=== PATIENT | male | born 1995 | race Caucasian/White ===

== ENCOUNTER 2020-02-03 14:27 | Outpatient (REF) | payer OTHER, SELFPAY ==
[2020-02-03 15:11] LABS: MANUAL DIFF FLAG NO
[2020-02-03 15:14] LABS: Basophils Absolute Auto 0.1 X10*3/uL (0.0-0.2); Basophils Percent Auto 0.8 % (0-2); Eosinophils Absolute Auto 0.3 X10*3/uL (0.0-0.4); Eosinophils Percent Auto 3.7 % (0-4); Hematocrit 39.9 % (42-52); Hemoglobin 13.6 g/dl (14.0-18.0); Imm Gran Abs Auto 0.03 X10*3/uL (0.00-0.03); Imm Gran Pct Auto 0.4 % (0.0-0.4); Lymphocytes Absolute Auto 2.9 X10*3/uL (1.2-4.9); Lymphocytes Percent Auto 37.5 % (20-40); Mean Corpuscular HGB Conc 34.1 g/dl (31.0-36.0); Mean Corpuscular Hemoglobin 29.6 pg (27.0-33.0); Mean Corpuscular Volume 86.9 fL (80-98); Mean Platelet Volume 10.2 fL (9.4-12.4); Monocytes Absolute Auto 0.8 X10*3/uL (0.1-1.2); Monocytes Percent Auto 10.1 % (2-11); Neutrophils Absolute Auto 3.7 X10*3/uL (2.0-8.3); Neutrophils Percent Auto 47.5 % (45-73); Platelet Count 203 X10*3/uL (160-400); Red Blood Count 4.59 X10*6/uL (4.60-5.80); White Blood Count 7.8 X10*3/uL (4.8-10.8)
[2020-02-03 15:46] LABS: Alanine Aminotransferase 30 U/L (0-40); Albumin Level 4.3 g/dL (3.5-5.0); Alkaline Phosphatase 74 U/L (39-117); Anion Gap 13 (12-20); Aspartate Amino Transferase 24 U/L (5-37); Bilirubin Total 0.6 mg/dL (0.0-1.0); Blood Urea Nitrogen 18 mg/dL (9-16); Calcium 9.1 mg/dL (8.4-10.2); Carbon Dioxide 30 mmol/L (22-29); Chloride 100 mmol/L (96-108); Estimated Glomerular Filt Rate > 60; Glucose Fasting 89 mg/dL (60-99); Potassium 4.3 mmol/l (3.3-5.1); Sodium 139 mmol/L (135-145); Total Protein 7.2 g/dL (6.5-8.0)
[2020-02-03 16:08] LABS: TSH reflex Free T4 2.78 mIU/mL (0.32-4.0)
[2020-02-03 16:10] LABS: HBS Num1 97.66 mIU/mL (0-7.99); HBc Num1 0.08 S/CO (0.00-0.79); HBsAGNum1 0.31 S/CO (0.00-0.99); HIV AB/AG Nonreactive (Nonreactive); HIV Num 1 0.13 S/CO (0.00-0.99); Hepatitis B Core Antibody Nonreactive (Nonreactive); Hepatitis B Surface Antigen Negative (Negative); ~Hepatitis B Surface Antibody REACTIVE (Nonreactive); ~Hepatitis C Antibody Reactive (Nonreactive)
[2020-02-11 23:03] LABS: Hepatitis C Genotype Not Detected
== END 2020-02-03 14:28 | disposition home or self-care (01) ==
LOC: HO.LAB 14:27
PROVIDERS: PCP Physician Assistant; Visit Provider Physician Assistant
DX: B18.2 Chronic viral hepatitis C (principal); F19.90 Other psychoactive substance use, unspecified, uncomplicated; Z13.29 Encounter for screening for other suspected endocrine disorder; Z11.3 Encounter for screening for infections with a predominantly sexual mode of transmission; Z13.1 Encounter for screening for diabetes mellitus
CPT/HCPCS: 36415; 80053; 84443; 85025; 86704; 86706; 86803; 87340; 87389; 87902

== ENCOUNTER 2023-01-08 12:43 | Outpatient (AMB) | payer OTHER, SELFPAY ==
[2023-01-08 12:45] VITALS: BP 118/62; PULSE 85; O2SAT 96; BMI 24.4
--- NOTE | 2023-01-08 12:45 | MHC.PC.OV ---
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 per policy Accompanied by: Self / Same As Patient Allergies cat dander [CATS] Allergy (Unknown, Verified 01/08/23 12:46) SNEEZING AND INCREASE IN ASTHMA SYMPTOMS dog dander [DOGS] Allergy (Unknown, Verified 01/08/23 12:46) SNEEZING AND INCREASE IN ASTHMA SYMPTOMS SEASONAL ALLERGIES Allergy (Unknown, Uncoded 01/08/23 12:46) SNEEZING AND INCREASE IN ASTHMA SYMPTOMS Medication List - Last Reconciled 01/09/23 by Chavo Ching MD clonazepam 1 mg PO BID PRN hydroxyzine HCl 25 mg PO BID PRN loratadine 10 mg PO DAILY methadone 10 mg PO DAILY montelukast 10 mg PO BEDTIME 90 days nicotine (polacrilex) 4 mg PO Q1H 20 days ProAir HFA 90 mcg/actuation (albuterol sulfate) 2 puffs inhalation Q4H PRN 30 days NS Tobacco use date assessed: 01/08/23 Dental Screening Dental Screen Date: 01/08/23 Did you have a dental visit in the last 12 months?: Yes Did you have a dental problem in the last 6 months where you did not have access to dental care?: No Was dental information given to patient?: Patient has dentist HPI dental dreams/tooth extraction HPI Details scheduled to have two cavities treated; has controlled asthma, substance abuse and depression [facility] Surgical History No pertinent past surgical history Family History Father Leukemia Mother Chronic mental illness Addiction Maternal Grandmother Chronic mental illness Maternal Grandfather No problems noted. Sister Anxiety Depression Addiction to drug Social History Housing: Other Housing Other:: half way house Alcohol intake: never Patient Tobacco Use Status: Current everyday Tobacco user Cigarette Packs Per Day: 1 e-Cigarette/Vaping Use: Never Used Second Hand Smoke Exposure: Yes Substance Use Type: Heroin and IV Drugs service: No Current occupational status: unemployed Cognitive needs: No Hearing needs: No Vision needs: No Questionnaire PHQ-9 Over the last 2 weeks, how often have you been bothered by any of the following problems? 1. Little interest or pleasure in doing things: not at all 2. Feeling down, depressed, or hopeless: not at all 3. Trouble falling or staying asleep, or sleeping too much: not at all 4. Feeling tired or having little energy: not at all 5. Poor appetite or overeating: not at all 6. Feeling bad about yourself - or that you are a failure or have let yourself or your family down: not at all 7. Trouble concentrating on things, such as reading the newspaper or watching television: not at all 8. Moving or speaking so slowly that other people could have noticed. Or the opposite - being so fidgety or restless that you have been moving around a lot more than usual: not at all 9. Thoughts that you would be better off or of hurting yourself in some way: not at all Total score: 0 Depression Screening Interpretation: Negative Depression Screening Done: Yes 17565 - PHQ-9 Billing: Yes Source: Developed by Drs. Daniel Cleary, Michelle Dye, Torsten Espinoza and colleagues, with an educational nadine from [employer]. Thrive Questionnaire Date Thrive assessed: 01/08/23 I am a: Patient What is your living situation today?: I have a steady place to live Within the past 12 months, did the food you bought not last and you didn't have the money to get more?: Never true Within the past 12 months, did you worry whether your food would run out before you got money to buy more?: Never true Do you have trouble paying for medicines?: No Do you have trouble getting transportation to medical appointments?: No Do you have trouble paying your heating and electricity bill?: No Do you have trouble taking care of your child, family member or friend?: No Do you have trouble with day-to-day activities such as bathing, preparing meals, shopping, managing finances, etc.?: No Are you currently unemployed and looking for a job?: No Are you interested in more education?: No Please select the resources that you would like help with: None AUDIT C Alcohol Use Questionnaire (AUDIT-C) 1. How often do you have a drink containing alcohol?: Never 3. How often do you have six or more drinks on one occasion?: Never Total Score: 0 Score Reviewed/Action Taken: Yes BISHOP-7 AMB Questionnaire BISHOP-7 Date BISHOP - 7 assessed: 01/08/23 Feeling nervous, anxious, or on edge: 0 = Not at all Not being able to stop or control worryin = Not at all Worrying too much about different things: 0 = Not at all Trouble relaxin = Not at all Being so restless that it is hard to sit still: 0 = Not at all Becoming easily annoyed or irritable: 0 = Not at all Feeling afraid as if something awful might happen: 0 = Not at all Total BISHOP-7 score (0-4 normal; 5-9 mild; 10-14 moderate; 15-21 severe): 0 Source: Developed by Drs. Daniel Cleary, Michelle Dye, Torsten Espinoza and colleagues, with an educational nadine from [employer]. BISHOP-7 Assessment Billing BISHOP-7 Assessment Tool: BISHOP-7 Assessment 19220 Review of Systems Const Denies chills, Denies fatigue, Denies headache(s) and Denies weight loss Eyes Denies change in vision, Denies diplopia and Denies eye pain ENT Denies vertigo, Denies dizziness, Denies headache(s) and Denies nasal discharge Card Denies chest pain, Denies rapid heart rate and Denies dyspnea on exertion Resp Denies chest congestion, Denies cough, Denies pain with cough and Denies dyspnea on exertion GI Denies abdominal pain, Denies hematochezia and Denies change in bowel habits Musc Denies myalgias, Denies arthralgias and Denies joint swelling Skin/Breast Denies lesions and Denies unusual bruising Neuro Denies vertigo, Denies dizziness, Denies headache(s) and Denies focal weakness Endo Denies fatigue Physical exam (Primary Care) Vital Signs: Last Vital Signs Pulse 85 01/08/23 12:45 BP 118/62 01/08/23 12:45 Pulse Ox 96 01/08/23 12:45 Oxygen Delivery Method Room Air 01/08/23 12:45 BMI result Body Mass Index 24.4 Tobacco/Smoking Status: Tobacco use Status Tobacco use date assessed 01/08/23 01/08/23 12:52 Patient Tobacco Use Status Current everyday Tobacco 01/08/23 12:52 PHQ-9: PHQ-9 Score PHQ-9: Total score 0 01/08/23 12:52 Depression Screening Interpretation: Negative Thrive Assessment: Date of Thrive Assessment Date Thrive assessed 01/08/23 01/08/23 12:52 Const General: cooperative, healthy appearing and no acute distress Orientation/consciousness: oriented to person, oriented to place and oriented to time HENMT Head: Yes normal to inspection, Yes normocephalic and Yes atraumatic Mouth: Normal oral and palatal mucosa present and tongue normal Throat: Yes posterior oropharynx normal and Yes uvula midline Eyes General: appearance normal, both eyes and all related structures Neck Neck: Yes normal visual inspection, Yes full ROM and Yes no lymphadenopathy Thyroid: Thyroid normal Carotids: normal carotid upstroke Chest Chest palpation & inspection: normal inspection of the chest Resp Effort & Inspection: normal respiratory effort and able to speak in complete sentences Auscultation: clear to auscultation bilaterally Cardio Jugular venous distension: no JVD Palpation: normal PMI Rate: regular rate Rhythm: regular rhythm Heart sounds: S1 normal heart sound present and S2 normal heart sound present GI Inspection: Yes normal to inspection Palpation (GI): Soft to palpation and No hepatosplenomegaly present Auscultation: normal bowel sounds General: Yes no CVA tenderness Back/Spine/Pelvis Back: no CVA tenderness Skin General skin exam: no rashes or lesions noted Neuro General: oriented to person, oriented to place and oriented to time Extrem General: Yes normal to inspection and Yes full ROM Assessment and Plan Assessment & Plan (1) Preop exam for internal medicine: Code(s): Z01.818 - Encounter for other preprocedural examination Plan: low risk for cardiovacular complications; cleared for dental work (2) MDD (major depressive disorder): Code(s): F32.9 - Major depressive disorder, single episode, unspecified Qualifiers: Major depression recurrence: recurrent Active/Remission status: currently active Major depression episode severity: moderate Qualified Code(s): F33.1 - Major depressive disorder, recurrent, moderate Plan: stable; same rx (3) History of opioid abuse: Code(s): F11.11 - Opioid abuse, in remission Plan: cont on methadone (4) Asthma: Code(s): J45.909 - Unspecified asthma, uncomplicated Qualifiers: Asthma severity: mild Asthma persistence: persistent Asthma complication type: uncomplicated Qualified Code(s): J45.30 - Mild persistent asthma, uncomplicated Plan: stable; on rx (5) Hepatitis C: Code(s): B19.20 - Unspecified viral hepatitis C without hepatic coma Qualifiers: Viral hepatitis chronicity: chronic Hepatic coma status: without hepatic coma Qualified Code(s): B18.2 - Chronic viral hepatitis C Plan: in remission Medications: Refilled ProAir HFA 90 mcg/actuation (albuterol sulfate) 2 puffs inhalation Q4H PRN 8.5 grams 3RF wheezing 30 days NS J45.30 - Mild persistent asthma, uncomplicated loratadine 10 mg PO DAILY 90 tabs 0RF J45.30 - Mild persistent asthma, uncomplicated Coding Level of Care Code Est Pt Level 4 (94272) Diagnoses Preop exam for internal medicine Z01.818 Moderate episode of recurrent major depressive disorder F33.1 Major depression recurrence: recurrent Active/Remission status: currently active Major depression episode severity: moderate History of opioid abuse F11.11 Mild persistent asthma without complication J45.30 Asthma severity: mild Asthma persistence: persistent Asthma complication type: uncomplicated Chronic hepatitis C without hepatic coma B18.2 Viral hepatitis chronicity: chronic Hepatic coma status: without hepatic coma Additional Codes BISHOP-7 Assessment Billing - BISHOP-7 Assessment Tool: BISHOP-7 Assessment 09693 ([id number])
== END 2023-01-08 13:04 | disposition home or self-care (01) ==
PROVIDERS: PCP Physician Assistant; Visit Provider Internal Medicine
DX: F33.1 Major depressive disorder, recurrent, moderate (principal); F11.11 Opioid abuse, in remission; B18.2 Chronic viral hepatitis C; Z01.818 Encounter for other preprocedural examination; J45.30 Mild persistent asthma, uncomplicated
CPT/HCPCS: 99214

== ENCOUNTER 2023-04-16 12:57 | Outpatient (AMB) | payer OTHER, SELFPAY ==
[2023-04-16 13:00] VITALS: BP 110/74; PULSE 67; O2SAT 97; BMI 27.4
--- NOTE | 2023-04-16 13:00 | MHC.PC.OV ---
Vital Signs 04/16/23 13:00 Height 5 ft 6 in Weight 169 lb 8 oz BMI 27.4 BP 110/74 Blood Pressure Location Lt brachial Position Sitting Pulse 67 Pulse Source Pulse Oximeter Pulse Oximetry (%) 97 Oxygen Delivery Method Room Air Intake Visit Reasons: Annual PE Intake Note: Patient is here today for a physical. 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 Accompanied by: Self / Same As Patient Allergies cat dander [CATS] Allergy (Unknown, Verified 04/16/23 13:18) SNEEZING AND INCREASE IN ASTHMA SYMPTOMS dog dander [DOGS] Allergy (Unknown, Verified 04/16/23 13:18) SNEEZING AND INCREASE IN ASTHMA SYMPTOMS SEASONAL ALLERGIES Allergy (Unknown, Uncoded 04/16/23 13:01) SNEEZING AND INCREASE IN ASTHMA SYMPTOMS Medication List - Last Reconciled 04/16/23 by Aron Trujillo PA-C alum-mag hydroxide-simeth 200-200-20 mg/5 mL (Antacid-[place]) mL PO clonazepam 1 mg PO BID PRN hydroxyzine pamoate 50 mg PO TID loratadine 10 mg PO DAILY methadone 10 mg PO DAILY methadone 75 mg subcut Q4-8H PRN montelukast 10 mg PO BEDTIME 90 days nicotine 1 patch topical DAILY nicotine (polacrilex) 4 mg PO Q1H 20 days Tobacco use date assessed: 04/16/23 Dental Screening Dental Screen Date: 04/16/23 Did you have a dental visit in the last 12 months?: Yes Did you have a dental problem in the last 6 months where you did not have access to dental care?: No Was dental information given to patient?: Patient has dentist HPI Annual PE HPI Details Patient is a 27-year-old male here today an annual physical... Patient has a past medical history significant for tobacco abuse, IV heroin use, chronic hepatitis-C, Environmental allergies, anxiety. .. hepatitis-C: Had retested for Hep C and reports clearance of the virus without any treatment. .. Asthma: reports his asthma has been well controlled with only p.r.n. use of his albuterol inhaler. He is reports since he has been sober from street opiates his asthma has been a little bit more bothersome., unfortunately does continue to smoke .. IV opiate use (in remission)- now living in sober living, has been sober over the last [address]iates. Now on methadone and going to a methadone clinic in the local area. --> he is concerned about his low testosterone, he reports symptoms of increased depression, low libido, difficulty growing facial hair. He reports he got tested and was low normal. He does understand this is likely due to years of opiate use at a young age. He is interested in seeing a neurologist for hypogonadism workup and possibly supplemental testosterone .. Smoker: Has reduced his cigarette smoking. Has tried Chantix in the past though was not helpful.. He does have nicotine patches available to him through his methadone clinic He would like to continue nicotine gum . VAccine: Up-to-date with tetanus vaccine, has received 2 COVID vaccines, [facility] Surgical History No pertinent past surgical history Family History Father Leukemia Mother Chronic mental illness Addiction Maternal Grandmother Chronic mental illness Maternal Grandfather No problems noted. Sister Anxiety Depression Addiction to drug Social History Housing: Other Housing Other:: half way house Alcohol intake: never Patient Tobacco Use Status: Current everyday Tobacco user Cigarette Packs Per Day: 1 e-Cigarette/Vaping Use: Never Used Second Hand Smoke Exposure: Yes Substance Use Type: Heroin and IV Drugs service: No Current occupational status: unemployed Cognitive needs: No Hearing needs: No Vision needs: No Questionnaire PHQ-9 Over the last 2 weeks, how often have you been bothered by any of the following problems? 1. Little interest or pleasure in doing things: not at all 2. Feeling down, depressed, or hopeless: not at all 3. Trouble falling or staying asleep, or sleeping too much: not at all 4. Feeling tired or having little energy: not at all 5. Poor appetite or overeating: not at all 6. Feeling bad about yourself - or that you are a failure or have let yourself or your family down: not at all 7. Trouble concentrating on things, such as reading the newspaper or watching television: not at all 8. Moving or speaking so slowly that other people could have noticed. Or the opposite - being so fidgety or restless that you have been moving around a lot more than usual: not at all 9. Thoughts that you would be better off or of hurting yourself in some way: not at all Total score: 0 Depression Screening Interpretation: Negative Depression Screening Done: Yes 20910 - PHQ-9 Billing: Yes Source: Developed by Drs. Daniel Cleary, Michelle Dye, Torsten Espinoza and colleagues, with an educational nadine from [employer]. Thrive Questionnaire Date Thrive assessed: 04/16/23 I am a: Patient What is your living situation today?: I have a steady place to live Within the past 12 months, did the food you bought not last and you didn't have the money to get more?: Never true Within the past 12 months, did you worry whether your food would run out before you got money to buy more?: Never true Do you have trouble paying for medicines?: No Do you have trouble getting transportation to medical appointments?: No Do you have trouble paying your heating and electricity bill?: No Do you have trouble taking care of your child, family member or friend?: No Do you have trouble with day-to-day activities such as bathing, preparing meals, shopping, managing finances, etc.?: No Are you currently unemployed and looking for a job?: No Are you interested in more education?: No Please select the resources that you would like help with: None Currently or been in a relationship where the following occur: no concerns reported THRIVE Score: 0 AUDIT C Alcohol Use Questionnaire (AUDIT-C) 1. How often do you have a drink containing alcohol?: Never 3. How often do you have six or more drinks on one occasion?: Never Total Score: 0 Score Reviewed/Action Taken: Yes BISHOP-7 AMB Questionnaire BISHOP-7 Date BISHOP - 7 assessed: 04/16/23 Feeling nervous, anxious, or on edge: 0 = Not at all Not being able to stop or control worryin = Not at all Worrying too much about different things: 0 = Not at all Trouble relaxin = Not at all Being so restless that it is hard to sit still: 0 = Not at all Becoming easily annoyed or irritable: 0 = Not at all Feeling afraid as if something awful might happen: 0 = Not at all Total BISHOP-7 score (0-4 normal; 5-9 mild; 10-14 moderate; 15-21 severe): 0 Source: Developed by Drs. Daniel Cleary, Michelle Dye, Torsten Espinoza and colleagues, with an educational nadine from [employer]. BISHOP-7 Assessment Billing BISHOP-7 Assessment Tool: BISHOP-7 Assessment 99614 Review of Systems Const Denies body aches, Denies chills, Denies excessive sweating, Denies fatigue, Denies fever(s) and Denies headache(s) Eyes Denies blurry vision ENT Denies dysphagia, Denies vertigo, Denies dizziness, Denies headache(s), Denies hearing loss and Denies tinnitus Card Denies chest pain, Denies chest pain with activity, Denies syncope, Denies irregular heart rhythm and Denies dyspnea Resp Denies chest congestion, Denies cough, Denies hemoptysis, Denies dyspnea and Denies wheezing GI Denies abdominal pain, Denies melena, Denies hematochezia, Denies coffee ground emesis, Denies dysphagia, Denies diarrhea, Denies nausea and Denies vomiting Denies difficulty urinating, Denies dysuria, Denies urinary frequency, Denies urinary hesitancy and Denies urinary urgency Musc Denies arthralgias, Denies limited range of motion, Denies muscle cramps and Denies muscle weakness Skin/Breast Denies rash and Denies skin ulcer Neuro Denies Abnormal speech present, Denies confusion, Denies vertigo, Denies dizziness, Denies syncope, Denies headache(s), Denies memory loss and Denies seizure-like activity Psych Denies anxiety, Denies confusion, Denies depression, Denies memory loss, Denies panic attacks and Denies paranoia Endo Denies excessive sweating, Denies fatigue, Denies flushing, Denies polydipsia and Denies polyuria Aller/Immun Denies wheezing Physical exam (Primary Care) Vital Signs: Last Vital Signs Pulse 67 04/16/23 13:00 BP 110/74 04/16/23 13:00 Pulse Ox 97 04/16/23 13:00 Oxygen Delivery Method Room Air 04/16/23 13:00 BMI result Body Mass Index 27.4 Tobacco/Smoking Status: Tobacco use Status Tobacco use date assessed 04/16/23 04/16/23 13:03 Patient Tobacco Use Status Current everyday Tobacco 04/16/23 13:03 e-Cigarette/Vaping Use Never Used 04/16/23 13:03 Are you ready to quit: Yes Tobacco cessation counseling provided: Yes Items discussed: Nicotine replacement Relapse Prevention: discussed the importance of a supportive environment, discussed negative mood or depression after quitting, weight gain after smoking is common and discussed dietary, exercise and/or lifestyle changes Number of minutes spent counselin CPT code: 87380 - 4-10 Minutes PHQ-9: PHQ-9 Score PHQ-9: Total score 0 04/16/23 13:12 Depression Screening Interpretation: Negative Thrive Assessment: Date of Thrive Assessment Date Thrive assessed 04/16/23 04/16/23 13:03 Currently or been in a relationship where the following occur: no concerns reported Const General: cooperative, comfortable, no acute distress, alert and awake; No confusion Orientation/consciousness: oriented to person, oriented to place, patient oriented x3 and No confusion HENMT Head: Yes normocephalic Ears: external ears normal and TM's normal bilaterally Face and sinus: No sinus tenderness Mouth: Normal oral and palatal mucosa present and tongue normal Teeth and gingiva: dentition normal and gingiva normal Throat: Yes posterior oropharynx normal, Yes tonsils normal and Yes uvula midline Eyes Conjunctivae: conjunctivae normal Sclerae: sclerae normal Pupils: Equal, round and reactive pupils present EOM: EOMs intact bilaterally Direct Ophthalmoscopy: No no photophobia Neck Neck: Yes no lymphadenopathy, No tender and Yes no JVD Thyroid: Thyroid normal Carotids: no bruits Chest Chest palpation & inspection: no tenderness Resp Effort & Inspection: normal respiratory effort, no audible wheezes, not labored and no stridor Auscultation: no crackles, no rales, no rhonchi and no wheezes Cardio Jugular venous distension: no JVD Rate: regular rate, not bradycardic and not tachycardic Rhythm: regular rhythm Bruits: no carotid bruits Peripheral pulses: Peripheral pulses 2+ throughout GI Inspection: Yes normal to inspection, No abdominal wall ecchymosis and No visible herniation Palpation (GI): Soft to palpation, nontender, no guarding, not rigid and No hepatosplenomegaly present Auscultation: normoactive bowel sounds General: Yes no CVA tenderness Back/Spine/Pelvis Back: no CVA tenderness and No back tenderness Cervical Spine: cervical ROM normal Thoracic/Lumbar Spine: thoracic and lumbar spine normal to inspection, straight leg raise negative bilaterally, No thoraco-lumbar ROM limited and No lumbar spinal tenderness Skin Lesions: no lesions Rashes: no rashes Wounds: no wounds Neuro General: oriented to person, oriented to place, patient oriented x3, CN's II-XI intact bilaterally and No confusion Cranial nerves: Yes Equal, round and reactive pupils present and Yes Normal accommodation reflex present Cognition (Neuro): normal cognition Speech: No Abnormal speech present Gait exam (Neuro): Normal gait present Motor exam (neuro): 5/5 motor strength present throughout Extrem Right upper extremity: full ROM; no cyanosis Left upper extremity: full ROM; no cyanosis Right lower extremity: no edema Left lower extremity: no edema Psych Appearance: grossly normal Mental Status: mental status grossly normal Affect: normal affect Attitude: cooperative Thought process: Normal thought process present Office Procedures Flu Questionnaire Does the patient have a severe egg allergy?: No Does the patient have severe life threatening allergies?: No Does the patient have a fever or illness today?: No Has the patient ever had Guillain-Dawson Syndrome?: No Has the patient ever had any past reaction to a flu shot?: No Immunizations flu vacc [id number] 6mos up(PF) 60 mcg(15 mcgx4)/0.5 mL IM syringe Performing Provider: Aron Trujillo PA-C Performing Location: [facility] Administered by: KENYATTA Bedolla on 04/16/23 13:12 Dose Route Admin Location Dispensed Lot Number Expiration Date NDC [facility] 0.5 mL IM Left Deltoid 0.5 mL [id number] 09/01/23 31152-539-36 [place] VIS Given Date VIS Provided VIS Publication Date 04/16/23 Single Vaccine 20 Eligibility Eligibility Date Funding Source Not [facility] Eligible 04/16/23 Private Assessment and Plan Assessment & Plan (1) Annual physical exam: Code(s): Z00.00 - Encounter for general adult medical examination without abnormal findings (2) Hypogonadism in male: Code(s): E29.1 - Testicular hypofunction Plan: He has low normal testosterone level on most recent labs from a clinic. Will recheck testosterone. He does report having low libido, low energy and sometimes increased depression which he attributes to low testosterone. He has been using opiates from early teen heard which is likely the reason for his low testosterone. He would like to see a urologist for hypogonadism workup and perhaps testosterone replacement. (3) Current smoker: Code(s): F17.200 - Nicotine dependence, unspecified, uncomplicated Plan: He does report he needs to completely quit smoking and has had difficulty doing so. He does have nicotine patches available to him and will continue working on reducing his smoking. (4) History of opioid abuse: Code(s): F11.11 - Opioid abuse, in remission Plan: Has been remission over the last 2 months. Now living in sober living. Now also on methadone and doing much better. 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 (5) Hepatitis C: Code(s): B19.20 - Unspecified viral hepatitis C without hepatic coma Qualifiers: Hepatic coma status: without hepatic coma Viral hepatitis chronicity: chronic Qualified Code(s): B18.2 - Chronic viral hepatitis C Plan: He reports he had been tested at the clinic in his hepatitis C viral load was negligible. He did not need treatment (6) Asthma: Code(s): J45.909 - Unspecified asthma, uncomplicated Qualifiers: Asthma complication type: uncomplicated Asthma persistence: persistent Asthma severity: mild Qualified Code(s): J45.30 - Mild persistent asthma, uncomplicated Plan: He reports his asthma is fairly well controlled with only p.r.n. use of his albuterol inhaler. He does use allergy medication on a daily basis due to his environmental allergies. (7) Screening for diabetes mellitus (DM): Code(s): Z13.1 - Encounter for screening for diabetes mellitus (8) MDD (major depressive disorder): Code(s): F32.9 - Major depressive disorder, single episode, unspecified Qualifiers: Active/Remission status: currently active Major depression episode severity: moderate Major depression recurrence: recurrent Qualified Code(s): F33.1 - Major depressive disorder, recurrent, moderate Plan: Patient does suffer from depression though he reports anxiety as is most concerning mental health issue. (9) BISHOP (generalized anxiety disorder): Code(s): F41.1 - Generalized anxiety disorder Plan: Patient now seeing a mental health provider whom provides him his mental health medication namely clonazepam and hydroxyzine. He reports his anxiety is fairly well controlled now.. 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 He does use clobetasol cream which has been somewhat effective for him in the past. He is considering seeing a wind commissioning technician again. Orders: Orders Influenza [id number] Immunization 04/16/23 Z23 - Encounter for immunization Comprehensive [place]. Panel Fast 04/16/23 Z13.1 - Encounter for screening for diabetes mellitus US scrotum 04/16/23 E29.1 - Testicular hypofunction Testosterone, Free/Total 04/16/23 E29.1 - Testicular hypofunction Referrals Urology Referral E29.1 - Testicular hypofunction Medications: New albuterol sulfate 90 mcg/actuation (Ventolin HFA) 1 inh inhalation QID 30 days 8.5 grams 3RF J45.30 - Mild persistent asthma, uncomplicated clobetasol 0.05% 1 appl topical DAILY 30 days 60 grams 1RF L65.9 - Nonscarring hair loss, unspecified Refilled loratadine 10 mg PO DAILY 90 tabs 2RF J45.30 - Mild persistent asthma, uncomplicated loratadine 10 mg PO DAILY 90 tabs 2RF J45.30 - Mild persistent asthma, uncomplicated Discontinued montelukast Discontinued Reason: Doctor's Order 10 mg PO BEDTIME 90 days 90 tabs 0RF J45.30 - Mild persistent asthma, uncomplicated Coding Level of Care Code Est Pt Prev Care 18-39y(51010) Diagnoses Annual physical exam Z00.00 Hypogonadism in male E29.1 Current smoker F17.200 History of opioid abuse F11.11 Chronic hepatitis C without hepatic coma B18.2 Hepatic coma status: without hepatic coma Viral hepatitis chronicity: chronic Mild persistent asthma without complication J45.30 Asthma complication type: uncomplicated Asthma persistence: persistent Asthma severity: mild Screening for diabetes mellitus (DM) Z13.1 Moderate episode of recurrent major depressive disorder F33.1 Active/Remission status: currently active Major depression episode severity: moderate Major depression recurrence: recurrent BISHOP (generalized anxiety disorder) F41.1 Alopecia L65.9 Additional Codes BISHOP-7 Assessment Billing - BISHOP-7 Assessment Tool: BISHOP-7 Assessment 39493 ([id number]) Vital Signs *Quality* - CPT code: 27520 - 4-10 Minutes ([id number])
== END 2023-04-16 13:41 | disposition home or self-care (01) ==
PROVIDERS: PCP Physician Assistant; Visit Provider Physician Assistant
DX: Z23 Encounter for immunization (principal)
CPT/HCPCS: 90471; 90686; 99395; 99406

== ENCOUNTER 2023-05-06 14:03 | Outpatient (REF) | payer OTHER, SELFPAY ==
--- NOTE | ~2023-05-06 | US_ITS ---
EXAMINATION: US SCROTUM CLINICAL INFORMATION: Testicular hypofunction. Hypogonadism. COMPARISON: None available. TECHNIQUE: A sonogram of the scrotum was performed assessing bazzi-scale appearance and color Doppler flow. Spectral Doppler analysis of the arterial and venous flow were performed in the testes bilaterally. FINDINGS: RIGHT: Right testicle measures 3.8 x 2.1 x 2.1 cm, volume 8.8 mL. Hypoechoic lesion with associated macrocalcification measuring 1.6 x 1.2 x 1.4 cm. Spectral Doppler analysis of the arterial and venous flow is decreased in the right testis. Right epididymal head is normal in size. No right hydrocele or varicocele is seen. Right epididymal Doppler flow is normal. LEFT: Left testicle measures 4.3 x 2.3 x 2.7 cm, volume 13.6 mL. No focal testicular parenchymal lesions are visualized. Spectral Doppler analysis of the arterial and venous flow is normal in the left testis. Left epididymal head is normal in size. No left hydrocele or varicocele is seen. Left epididymal Doppler flow is normal. US/US scrotum IMPRESSION: Hypoechoic right testicular lesion measuring 1.6 x 1.2 x 1.4 cm with associated macrocalcification. There is probable internal vascular flow. The appearance is concerning for testicular neoplasm including germ cell tumor. Findings will be communicated with the ordering provider by the PSA.
== END 2023-05-06 14:04 | disposition home or self-care (01) ==
LOC: HO.US 14:03
PROVIDERS: PCP Physician Assistant; Visit Provider Physician Assistant
DX: E29.1 Testicular hypofunction (principal)
CPT/HCPCS: 76870

== ENCOUNTER 2023-05-29 12:45 | Emergency (ER) | payer OTHER, SELFPAY ==
[2023-05-29 13:10] VITALS: BP 101/66; BP 109/58; PULSE 110; PULSE 112; RESP 16; TEMP 36.4; O2SAT 94; BMI 26.6
--- NOTE | 2023-05-29 13:13 | PC.NURSE ---
Pt changed over into hospital attire, belongings brought to decon by security.
--- NOTE | 2023-05-29 13:33 | PC.NURSE ---
Pt ambulatory around unit with a steady gait, given water per request.
[2023-05-29 15:22] VITALS: BP 109/71; PULSE 98; RESP 18; O2SAT 95
--- NOTE | 2023-05-29 15:40 | ED_ITS ---
HPI - Overdose General Chief Complaint: Overdose Stated Complaint: SUBSTANCE ABUSE Time Seen by Provider: 05/29/23 15:40 Source: patient Mode of arrival: ambulatory Limitations: no limitations History of Present Illness HPI Narrative: 27-year-old on methadone Mrs. Methadone dose today and use some heroin. He states he was found sleeping and EMS was called EMS did not give the patient Narcan patient has been waiting in the ER for some time he denies cough fever chest pain nausea vomiting or diarrhea. Patient has never been hypoxic and looks well as oriented at this time. He does not want have any further testing done. MD complaint: accidental overdose Related Data Home Medications Medication Instructions Recorded Confirmed methadone 10 mg tablet 10 mg PO DAILY 08/17/21 04/16/23 clonazepam 1 mg tablet 1 mg PO BID PRN 01/08/23 04/16/23 aluminum-mag hydroxide-simethicone ml PO 04/16/23 04/16/23 200 mg-200 mg-20 mg/5 mL oral susp (Antacid-Antigas) hydroxyzine pamoate 50 mg capsule 50 mg PO TID 04/16/23 04/16/23 methadone 10 mg/mL injection 75 mg subcut Q4-8H PRN 04/16/23 04/16/23 solution nicotine 21 mg/24 hr daily 1 patch topical DAILY 04/16/23 04/16/23 transdermal patch Previous Rx's Medication Instructions Recorded nicotine (polacrilex) 4 mg gum 4 mg PO Q1H 20 days #480 ea 12/22/19 albuterol sulfate 90 mcg/actuation 1 inh inhalation QID 30 days #8.5 04/16/23 aerosol inhaler (Ventolin HFA) grams clobetasol 0.05 % topical cream 1 appl topical DAILY 30 days #60 04/16/23 grams loratadine 10 mg tablet 10 mg PO DAILY #90 tabs 04/16/23 Allergies Allergy/AdvReac Type Severity Reaction Status Date / Time cat dander [CATS] Allergy Unknown SNEEZING Verified 04/16/23 13:18 AND INCREASE IN ASTHMA SYMPTOMS dog dander [DOGS] Allergy Unknown SNEEZING Verified 04/16/23 13:18 AND INCREASE IN ASTHMA SYMPTOMS SEASONAL ALLERGIES Allergy Unknown SNEEZING Uncoded 04/16/23 13:01 AND INCREASE IN ASTHMA SYMPTOMS Review of Systems Review of Systems: Review of systems: General: Patient denies any fever chills recent illness or falls Musculoskeletal: Denies back pain or body aches or other injuries HEENT: denies headache, runny nose, ear pain Respiratory: denies shortness of breath, cough Cardiovascular: no chest pain or palpitations : denies dysuria, frequency Abdomen: no nausea vomiting denies abdominal pain Extremities: no swelling, no pain Skin: no diaphoresis Yes all other systems are reviewed and are negative PMFSH Past Medical History Surgical History No pertinent past surgical history Family History Family History Father Leukemia Mother Chronic mental illness Addiction Maternal Grandmother Chronic mental illness Maternal Grandfather No problems noted. Sister Anxiety Depression Addiction to drug Social History Social History Housing: Other Housing Other:: half way house Alcohol intake: never Patient Tobacco Use Status: Current everyday Tobacco user Cigarette Packs Per Day: 1 e-Cigarette/Vaping Use: Never Used Second Hand Smoke Exposure: Yes Use of substances other than those prescribed or required for medical reasons: Yes Substance Use Type: Heroin Advance Directives: No service: No Current occupational status: unemployed Cognitive needs: No Hearing needs: No Vision needs: No Physical Exam Vital Signs: Vital Signs: Last Vital Signs Temp 97.6 F 05/29/23 13:10 Pulse 98 05/29/23 15:22 Resp 18 05/29/23 15:22 BP 109/71 05/29/23 15:22 Pulse Ox 95 05/29/23 15:22 O2 Del Method Room Air 05/29/23 15:22 BMI result Body Mass Index 26.6 General: Well-appearing well-nourished in no signs of distress HEENT: Normocephalic atraumatic Neck: No signs of JVD, no masses no tenderness or lymphadenopathy Cardiovascular: Regular rate and rhythm Respiratory: Clear to auscultation bilaterally Abdomen: Soft nontender no masses rectal exam performed 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 Extremities: Normal pedal pulses no signs of edema Skin: Dry warm no rashes Back: No tenderness full ROM Medical Decision Making Medical Decision Making MDM Narrative: Patient looks well does not want any testing done he admits to using today has methadone scheduled does not want to stay here is alert and oriented Differential Diagnosis Differential Diagnoses: The differential diagnosis associated with the presentation includes Accidental overdose altered mental status electrolyte abnormality Admission/Observation Consideration of admission/observation: Escalation of care including a dmission/observation considered External Record Review External record reviewed: Inpatient record Chronic Conditions Asthma Social Determinants Patient?s care significantly limited by Social Determinants of Health including: Alcoholism and drug addiction in family and Problems related to primary support group Discharge Plan Discharge Clinical Impression: Poisoning by opiate or related narcotic Patient Disposition: Home, Self-Care Instructions: Narcotic Safety (ED), Opioid Use Disorder (ED) Additional Instructions: You were seen today after an overdose of heroin. Please when using this in the future. You have any worsening concerns or will not help with drug use please return to the emergency department. Prescriptions: No Action nicotine (polacrilex) 4 mg gum 4 mg PO Q1H 20 Days Qty: 480 1RF methadone 10 mg tablet 10 mg PO DAILY Patient Comments: takes 115 mg - from [facility] hydroxyzine pamoate 50 mg capsule 50 mg PO TID nicotine 21 mg/24 hr patch 24 hour 1 patch topical DAILY alum-mag hydroxide-simeth [Antacid-Antigas] 200-200-20 mg/5 mL suspension PO methadone 10 mg/mL solution 75 mg subcut Q4-8H PRN albuterol sulfate [Ventolin HFA] 90 mcg/actuation HFA aerosol inhaler 1 inh inhalation QID 30 Days Qty: 8.5 3RF clobetasol 0.05 % cream 1 appl topical DAILY 30 Days Qty: 60 1RF loratadine 10 mg tablet 10 mg PO DAILY Qty: 90 2RF clonazepam 1 mg tablet 1 mg PO BID PRN
[2023-05-29 15:57] VITALS: BP 109/71; PULSE 98; RESP 18; TEMP 36.4; O2SAT 95
== END 2023-05-29 15:57 | disposition home or self-care (01) ==
PROVIDERS: Emergency Provider Student in an Organized Health Care Education/Training Program; PCP Physician Assistant
DX: T40.1X4A Poisoning by heroin, undetermined, initial encounter (principal); Y92.9 Unspecified place or not applicable
CPT/HCPCS: 99282; 99284

== ENCOUNTER 2023-09-11 23:33 | Emergency (ER) | payer OTHER, SELFPAY ==
[2023-09-12 00:15] VITALS: BP 116/66; PULSE 69; RESP 16; TEMP 36.9; O2SAT 93; BMI 19.9
--- NOTE | 2023-09-12 01:08 | PC.NURSE ---
pt presents through external triage, he reports increased life stressors and using drugs to help cope. The pt denies SI/HI at this time, has been fully changed over into appropriate attire and given a tour of the unit. The pt was provided with food and beverage per his request and tv turned on for comfort. Pt presented with a labret or lower lip piercing with silver ring in place. When RN asked patient about this jewelery and made him aware that the item will need to be removed he stated very matter of factly It doesn't come out, it's super glued in place . RN notified the dry charge process attendant Lisa about this and was informed to document the findings. Pt has been up to and from the bathroom independently with ease and without distress, UA obtained. RN will continue to monitor the patient for needs.
[2023-09-12 01:40] LABS: MANUAL DIFF FLAG NO
[2023-09-12 01:45] LABS: Basophils Absolute Auto 0.1 X10*3/uL (0.0-0.2); Basophils Percent Auto 0.8 % (0-2); Eosinophils Absolute Auto 0.1 X10*3/uL (0.0-0.4); Eosinophils Percent Auto 1.4 % (0-4); Hematocrit 44.9 % (42.0-52.0); Hemoglobin 15.4 g/dl (14.0-18.0); Imm Gran Abs Auto 0.03 X10*3/uL (0.00-0.03); Imm Gran Pct Auto 0.4 % (0.0-0.4); Lymphocytes Percent Auto 25.6 % (20-40); Mean Corpuscular HGB Conc 34.3 g/dl (31.0-36.0); Mean Corpuscular Hemoglobin 30.1 pg (27.0-33.0); Mean Corpuscular Volume 87.7 fL (80.0-98.0); Mean Platelet Volume 10.5 fL (9.4-12.4); Monocytes Absolute Auto 0.5 X10*3/uL (0.1-1.2); Neutrophils Percent Auto 64.8 % (45-73); Platelet Count 229 X10*3/uL (160-400); Red Blood Count 5.12 X10*6/uL (4.60-5.80); Red Cell Distribution Width 13.2 % (11.0-16.0); White Blood Count 7.8 X10*3/uL (4.8-10.8)
[2023-09-12 01:56] LABS: Amphetamine Screen Urine Not Detected (Not Detect); Barbiturates, Urine Not Detected (Not Detect); Benzodiazepines Screen Urine Not Detected (Not Detect); Buprenorphine Scr Not Detected (Not Detect); Cannabinoid Screen Urine POSITIVE (Not Detect); Cocaine Screen Urine Not Detected (Not Detect); Fentanyl, urine POSITIVE (Not Detect); Methadone Screen, Urine Positive (Not Detect); Opiate Screen Urine POSITIVE (Not Detect); Oxycodone Screen Urine Not Detected (Not Detect); Phencyclidine Screen Urine Not Detected (Not Detect)
[2023-09-12 01:58] LABS: Anion Gap 16 (12-20); Blood Urea Nitrogen 11 mg/dL (9-16); Calcium 9.8 mg/dL (8.4-10.2); Carbon Dioxide 24 mmol/L (22-29); Chloride 104 mmol/L (96-108); Creatinine Clr Calc Pharmacy 91.3; Estimated Glomerular Filt Rate > 60; Glucose Random 121 mg/dL (60-115); Potassium 3.9 mmol/L (3.3-5.1); Sodium 140 mmol/L (135-145)
[2023-09-12] MEDS: LORazepam 1 MG TABLET 2 MG PO (04:20)
[2023-09-12] MEDS: diphenhydrAMINE HCL 25 MG CAPSULE 50 MG PO (04:20)
--- NOTE | 2023-09-12 06:37 | ED.GENADULT ---
HPI - General Adult General Chief complaint: Psychiatric Symptoms Stated complaint: crisis Time Seen by Provider: 09/12/23 06:33 Source: patient Mode of arrival: ambulatory Limitations: no limitations History of Present Illness ED Provider: Iris Sauer PA-C HPI narrative: Patient is a 27 year old assigned male at with a history of anxiety, BISHOP, asthma, and hepatitis C, presenting to the emergency department today with increased anxiety. Patient states that he is having increased anxiety and would like clonazepam to bridge him to his next appointment. Patient denies any dizziness, lightheadedness, abdominal pain, nausea, vomiting, fever, chills, blurry vision, double vision, loss of vision, chest pain, difficulty breathing, shortness of breath, back pain, night sweats, pain with urination, increased urinary frequency, increased urinary urgency, blood in his urine or stool, syncope or a near syncopal episode, recent trauma or falls, bowel incontinence, bladder incontinence, or any other complaints at this time. Relieving factors: none Exacerbating factors: none Associated symptoms: denies other symptoms Treatments prior to arrival: none Related Data Home Medications ?Medication ?Instructions ?Recorded ?Confirmed methadone 10 mg tablet 10 mg PO DAILY 08/17/21 04/16/23 clonazepam 1 mg tablet 1 mg PO BID PRN 01/08/23 04/16/23 aluminum-mag hydroxide-simethicone ml PO 04/16/23 04/16/23 200 mg-200 mg-20 mg/5 mL oral susp (Antacid-Antigas) hydroxyzine pamoate 50 mg capsule 50 mg PO TID 04/16/23 04/16/23 methadone 10 mg/mL injection 75 mg subcut Q4-8H PRN 04/16/23 04/16/23 solution nicotine 21 mg/24 hr daily 1 patch topical DAILY 04/16/23 04/16/23 transdermal patch Previous Rx's ?Medication ?Instructions ?Recorded nicotine (polacrilex) 4 mg gum 4 mg PO Q1H 20 days #480 ea 12/22/19 clobetasol 0.05 % topical cream 1 appl topical DAILY 30 days #60 04/16/23 grams loratadine 10 mg tablet 10 mg PO DAILY #90 tabs 04/16/23 albuterol sulfate 90 mcg/actuation 1 inh inhalation QID 30 days #8.5 08/14/23 aerosol inhaler (Ventolin HFA) grams Allergies Allergy/AdvReac Type Severity Reaction Status Date / Time cat dander [CATS] Allergy Unknown SNEEZING Verified 09/12/23 00:23 AND INCREASE IN ASTHMA SYMPTOMS dog dander [DOGS] Allergy Unknown SNEEZING Verified 09/12/23 00:23 AND INCREASE IN ASTHMA SYMPTOMS SEASONAL ALLERGIES Allergy Unknown SNEEZING Uncoded 09/12/23 00:23 AND INCREASE IN ASTHMA SYMPTOMS Review of Systems Constitutional: Constitutional: Reports no additional constitutional complaints, Denies chills, Denies fever(s) and Denies night sweats Eyes: Eyes: Reports no additional eye complaints, Denies blurry vision, Denies change in vision, Denies diplopia, Denies eye discharge, Denies loss of vision and Denies eye pain ENT: Denies dizziness Cardiovascular: Cardiovascular: Reports no additional cardiovascular complaints, Denies chest pain, Denies lightheadedness, Denies Loss of Consciousness and Denies dyspnea Respiratory: Respiratory: Reports no additional respiratory complaints and Denies dyspnea Gastrointestinal: Gastrointestinal: Reports no additional gastrointestinal complaints, Denies abdominal pain, Denies melena, Denies hematochezia, Denies change in bowel habits and Denies change in stool character Genitourinary: Genitourinary: Reports no additional male genitourinary complaints, Denies hematuria, Denies oliguria, Denies difficulty urinating, Denies dysuria, Denies urinary frequency, Denies urinary hesitancy, Denies urinary incontinence and Denies urinary urgency Musculoskeletal: Musculoskeletal: Reports no additional musculoskeletal complaints, Denies numbness and Denies tingling Neurologic: Denies dizziness, Denies loss of vision, Denies numbness and Denies tingling Psychiatric: Psychiatric: Reports anxiety Endocrine: Endocrine: Reports no additional endocrine complaints Hematologic/Lymphatic: Hematologic/Lymphatic: Reports no additional hematologic/lymphatic complaints Allergic/Immunologic: Allergic/Immunologic: Reports no additional allergic/immunologic complaints PMF Past Medical History Attestation statement: The following information was validated with the patient. Source: old records reviewed and nursing notes reviewed Surgical History No pertinent past surgical history Family History Family History Father Leukemia Mother Chronic mental illness Addiction Maternal Grandmother Chronic mental illness Maternal Grandfather No problems noted. Sister Anxiety Depression Addiction to drug Social History Social History Housing: Other Housing Other:: half way house Alcohol intake: never Patient Tobacco Use Status: Current everyday Tobacco user Cigarette Packs Per Day: 1 Smoked in Last 30 Days: Yes e-Cigarette/Vaping Use: Never Used Second Hand Smoke Exposure: Yes Use of substances other than those prescribed or required for medical reasons: Yes Substance Use Type: Heroin Advance Directives: No Advance Directives Information Provided: Yes Do you have a plan to hurt others: No Plan service: No Current occupational status: unemployed Cognitive needs: No Hearing needs: No Vision needs: No Physical Exam ED Vital Signs: Vital Signs - 24 hr 09/12/23 00:15 09/12/23 06:55 09/12/23 09:08 Temperature 98.4 F 98.1 F 97.5 F Pulse Rate 69 86 57 Respiratory Rate 16 18 16 Blood Pressure 116/66 114/69 126/72 Pulse Oximetry 93 96 95 Oxygen Delivery Method Room Air Room Air Room Air BMI result Body Mass Index 19.9 Const General: cooperative, no acute distress, alert and awake Nutritional Appearance: well nourished Orientation/consciousness: patient oriented x3 Limitations: no limitations HENMT Head: Yes normal to inspection and Yes atraumatic Ears: hearing grossly normal bilaterally and external ears normal General nose exam: Normal external nose present, no nasal discharge noted and no epistaxis Face and sinus: Yes normal facial exam, No abrasion and No laceration Mouth: Normal oral and palatal mucosa present, no drooling and no muffled voice Eyes General: appearance normal, both eyes and all related structures Periorbital: periorbital findings normal Eyelids: Yes eyelids normal Conjunctivae: conjunctivae normal Pupils: Equal, round and reactive pupils present EOM: EOMs intact bilaterally Neck Neck: Yes normal visual inspection, Yes full ROM and Yes no lymphadenopathy Chest Chest palpation & inspection: normal inspection of the chest Resp Effort & Inspection: normal respiratory effort and able to speak in complete sentences GI Inspection: Yes normal to inspection Neuro General: patient oriented x3 and moves all extremities Cranial nerves: Yes Equal, round and reactive pupils present Cognition (Neuro): normal cognition Extrem General: Yes normal to inspection, Yes full ROM and Yes capillary refill normal Psych Appearance: grossly normal Mental Status: mental status grossly normal Affect: normal affect Attitude: cooperative Thought process: Normal thought process present Thought content: Normal thought content present Insight: Good insight present (Psych) Medications Administered Discontinued Medications Generic Name Dose Route Start Last Admin Trade Name Venkat PRN Reason Stop Dose Admin Diphenhydramine HCl 50 mg 09/12/23 04:15 09/12/23 04:20 Diphenhydramine Hcl 25 Mg Capsule PO 09/12/23 04:16 50 mg ONCE ONE Administration Lorazepam 2 mg 09/12/23 04:15 09/12/23 04:20 Lorazepam 1 Mg Tablet PO 09/12/23 04:16 2 mg ONCE STA Administration Medical Decision Making Medical Decision Making MDM Narrative: Patient is a 27 year old assigned male at with a history of anxiety, BISHOP, asthma, and hepatitis C presenting to the emergency department today with increased anxiety. Patient's physical exam was unremarkable. Patient's blood work was unremarkable. CARE team met with the patient and recommended discharge. I explained my physical exam findings as well as all test results to the patient. I answered all questions asked by the patient. I stressed the importance of the patient taking his medication as directed (either prescribed or as the over the counter packaging recommends). I stressed the importance of the patient following up with his primary care provider. I stressed the importance of the patient returning to the emergency department immediately if his symptoms were to worsen or if he were to develop any dizziness, shortness of breath, difficulty breathing, chest pain, blurry vision, loss of vision, nausea, vomiting, abdominal pain, fever, chills, back pain, or any other complaints. Patient verbalized agreement and understanding with this treatment plan and discharge. Differential Diagnosis Differential Diagnoses: The differential diagnosis associated with the presentation includes Anxiety Depression Admission/Observation Consideration of admission/observation: Escalation of care including admission/observation considered Patient would have been admitted to the hospital had his work up had any findings where hospital admission was appropriate and his clinical presentation warranted hospital admission. Consult Healthcare Provider Management of the patient was discussed with: Behavioral Health Provider (spoke to the CARE team as noted in the MDM Rationale portion of this note.) Lab Data [facility] Lab Attestation statement: I reviewed the patient's lab results. My interpretation of these results are in the MDM Rationale portion of this note. 09/12/23 01:33 09/12/23 01:33 Labs: Lab Results 09/12/23 Range/Units 01:33 WBC 7.8 (4.8-10.8) X10*3/uL RBC 5.12 (4.60-5.80) X10*6/uL Hgb 15.4 (14.0-18.0) g/dl Hct 44.9 (42.0-52.0) % MCV 87.7 (80.0-98.0) fL MCH 30.1 (27.0-33.0) pg MCHC 34.3 (31.0-36.0) g/dl RDW 13.2 (11.0-16.0) % Plt Count 229 (160-400) X10*3/uL MPV 10.5 (9.4-12.4) fL Immature Gran % (Auto) 0.4 (0.0-0.4) % Neut % (Auto) 64.8 (45-73) % Lymph % (Auto) 25.6 (20-40) % [place] % (Auto) 7.0 (2-11) % Eos % (Auto) 1.4 (0-4) % Baso % (Auto) 0.8 (0-2) % Lymph # (Auto) 2.0 (1.2-4.9) X10*3/uL [place] # (Auto) 0.5 (0.1-1.2) X10*3/uL Eos # (Auto) 0.1 (0.0-0.4) X10*3/uL Baso # (Auto) 0.1 (0.0-0.2) X10*3/uL Abs Immat Gran (auto) 0.03 (0.00-0.03) X10*3/uL Absolute Neuts (auto) 5.0 (2.0-8.3) x10*3/uL Absolute Nucleated RBC 0.000 (0.0-0.012) X10*3/uL Nucleated RBC % (auto) 0.0 (0.0-0.2) /100WBC Sodium 140 (135-145) mmol/L Potassium 3.9 (3.3-5.1) mmol/L Chloride 104 (96-108) mmol/L Carbon Dioxide 24 (22-29) mmol/L Anion Gap 16 (12-20) BUN 11 (9-16) mg/dL Creatinine 1.00 (0.5-1.4) mg/dL Estim Creat Clear Calc 91.3 Estimated GFR > 60 Random Glucose 121 H (60-115) mg/dL Calcium 9.8 D (8.4-10.2) mg/dL Urine Opiates Screen POSITIVE H (Not Detect) Ur Buprenorphine Scrn Not Detected (Not Detect) ng/mL Ur Oxycodone Screen Not Detected (Not Detect) ng/mL Urine Methadone Screen Positive H (Not Detect) ng/mL Urine Fentanyl Screen POSITIVE H (Not Detect) Ur Barbiturates Screen Not Detected (Not Detect) Ur Phencyclidine Scrn Not Detected (Not Detect) Ur Amphetamines Screen Not Detected (Not Detect) U Benzodiazepines Scrn Not Detected (Not Detect) Urine Cocaine Screen Not Detected (Not Detect) U Marijuana (THC) Screen POSITIVE H (Not Detect) Discharge Plan Discharge Clinical Impression: Anxiety Patient Disposition: Home, Self-Care Instructions: Anxiety (ED) Additional Instructions: Follow up with your primary care provider. Return to the emergency department immediately if your symptoms worsen or if you develop any dizziness, shortness of breath, difficulty breathing, chest pain, blurry vision, loss of vision, nausea, vomiting, abdominal pain, fever, chills, back pain, or any other complaints. Prescriptions: No Action albuterol sulfate [Ventolin HFA] 90 mcg/actuation HFA aerosol inhaler 1 inh inhalation QID 30 Days Qty: 8.5 0RF nicotine (polacrilex) 4 mg gum 4 mg PO Q1H 20 Days Qty: 480 1RF methadone 10 mg tablet 10 mg PO DAILY Patient Comments: takes 115 mg - from [facility] hydroxyzine pamoate 50 mg capsule 50 mg PO TID nicotine 21 mg/24 hr patch 24 hour 1 patch topical DAILY alum-mag hydroxide-simeth [Antacid-Antigas] 200-200-20 mg/5 mL suspension PO methadone 10 mg/mL solution 75 mg subcut Q4-8H PRN clobetasol 0.05 % cream 1 appl topical DAILY 30 Days Qty: 60 1RF loratadine 10 mg tablet 10 mg PO DAILY Qty: 90 2RF clonazepam 1 mg tablet 1 mg PO BID PRN Referrals: Aron Trujillo PA-C [Primary Care Provider] - Interventions: Robbins-Suicide Risk Severity Scale Last Done: 09/12/23 01:03 ED Discharge Assessment Last Done: 09/12/23 09:08 Discharge Date/Time: 09/12/23 09:10 Print Language: Irish
[2023-09-12 06:55] VITALS: BP 114/69; PULSE 86; RESP 18; TEMP 36.7; O2SAT 96
[2023-09-12 09:08] VITALS: BP 126/72; PULSE 57; RESP 16; TEMP 36.4; O2SAT 95
--- NOTE | 2023-09-12 10:03 | MHC.CARE ---
Patient was referred to CARE for consult after he self-presented to [facility] reports substance use, homelessness and that he ?stopped his Klonopin? 5-6 months ago and has been using heroin to cope. Patient is a 27-year-old, single, , Slovenian speaking male who self-presented to ED reporting he is looking to get back on Kolonpin for his anxiety and panic attacks and this is why he came to the ED today.? He is alert and oriented x 3, hygiene and grooming are good despite patient reporting he is current homeless but living in a car with his sister currently. He reports vague suicidal thoughts, but denies plan or intent and does not report a history of suicide attempts or self-harming behaviors. He denies any homicidal ideation plan or intent; he also denies any audio or visual hallucinations and does not appear to be responding to any internal stimuli currently. He reports his sleep and appetite have been poor, his eye contact is good, thought process and thought content is clear and organized. Clinician discusses treatment options detox, referral to hospital recovery team, [facility] and/or referral to [facility] for outpatient providers and patient declines all levels of care and referrals. He reports he has an appointment scheduled on 09/19/[address] Alfonso Ivan and patient states ?I just need the doctor to bridge the medication for Klonopin until my appointment?. Patient?s insight, judgment and impulse control is good, clinician called [facility] and they confirmed patient has appointment on 09/19/23. They also confirmed patient has 1 refill still on his Klonopin at [place] [facility]. [facility] reports they last saw patient for crisis assessment back in 2017 for substance use and there records did not report any history of suicide attempts or self-harming behaviors. Once patient is told he has a refill at pharmacy for his Klonopin he requests to be discharged so he can go and warp picker his script. Patient was discharge with safety plan and community resources. The following Safety Plan was reviewed with you in-person on 09/12/23 prior to discharge from the [facility]. If you have thoughts to harm self, call 911 and/or come to the closest ED. If you have any questions about this safety plan, please contact [facility]?s CARE (Clinical Assessment/Resource Education) Team @ [phone] option#2. This is not a crisis hotline, and phone calls may not be answered immediately. If you are experiencing a crisis, call [phone] or proceed to your nearest emergency department. ?Safety Recommendations: 1. If you are in need of immediate intervention from crisis services, but are not in any immediate danger, call the [facility] or [facility] crisis team at or [phone]. Crisis is? there 24 hrs every day, and can provide you with support, crisis assessment and can help you decide what to do next to address your mental health or can offer mobile crisis assessment in your home. 2. If you feel that you need inpatient psychiatric hospitalization, need medical attention, or are in immediate danger (feeling suicidal, for example) please come to [facility] or closest Emergency room or call 911. Stay in touch with your family and other supports; let them know how you are doing and if you have the urge to harm yourself. Contacts: 1. [facility] crisis [place] or [facility] crisis [phone] 2. CARE Team at [facility]: [phone], Should be called if there are questions about today?s assessment or recommendations. This is not a hotline and should not be used in a crisis. 3. Please feel free to go to [facility] walk-in clinic [address] [facility] [place]son for urgent behavioral health care or N @ [address] [place] [address]. You have been provided with contact information for the local [facility] and [facility]? crisis teams. You can also call them for phone support as needed @ 24/09 or [phone]. You have been provided with a patient resource handbook with resources and their contact information to multiple community resources and skilled nursing information.? Pamphlet was provided to you for [facility] and you are encouraged to follow up with their services. Information on a recovery collector was also provided as well as information on the [facility] for substance use treatment and recovery support. Crisis Prevention: Remember to incorporate some internal coping strategies (things the patient can do on their own to distract themselves from the problem, as well as people and settings that provide distraction.? 1. If you are feeling distressed or emotionally dysregulated, use a preferred coping or distraction skills which may include spending time with a pet, deep breathing or mindfulness exercises, utilizing sensory tools, physical movement, etc.? 1. If you are feeling distressed or emotionally dysregulated, put physical space between you and anything you may use to harm yourself with: for example, take a walk, take a shower, ask someone to pick you up and take you on a drive. 2. Avoid communicating or interacting with people who have not been supportive, or even have been triggering in the past.? 3. Pause any non-essential commitments, conversations or tasks until you are feeling safer. 4. Lighten your load by postponing projects, asking for extensions to deadlines, or taking a personal day from work.? 5. Call one of your trusted, supportive contacts.? 6. Call 988 and speak with a stamp maker or counselor and let them know you are feeling like you may enter a crisis and work with them on strategies to avoid the crisis. 7. Remember that your emotions are never permanent, but they will come and go like wakes on a beach. 8.? Distract your mind by watching a funny movie, playing a video game, anything you prefer as a distraction and re-assess how you feel after 20 minutes.? 9. Utilize harm reduction strategies provided you to keep you safe.
== END 2023-09-12 09:10 | disposition home or self-care (01) ==
PROVIDERS: Emergency Provider Emergency Medicine; PCP Physician Assistant
DX: F41.1 Generalized anxiety disorder (principal); F32.9 Major depressive disorder, single episode, unspecified; J45.909 Unspecified asthma, uncomplicated; B19.20 Unspecified viral hepatitis C without hepatic coma; F17.210 Nicotine dependence, cigarettes, uncomplicated; F11.20 Opioid dependence, uncomplicated; Z79.899 Other long term (current) drug therapy
CPT/HCPCS: 36415; 80048; 80307; 85025; 99284; 99285

== ENCOUNTER 2024-04-29 13:52 | Outpatient (AMB) | payer OTHER, SELFPAY ==
[2024-04-29 14:08] VITALS: BP 114/72; PULSE 95; O2SAT 95; BMI 24.9
--- NOTE | 2024-04-29 14:08 | MHC.PC.OV ---
Vital Signs 04/29/24 14:08 Height 5 ft 7 in Weight 159 lb BMI 24.9 BP 114/72 Blood Pressure Location Lt brachial Position Sitting Pulse 95 Pulse Source Pulse Oximeter Pulse Oximetry (%) 95 Oxygen Delivery Method Room Air Intake Visit Reasons: Med review Allergies cat dander [CATS] Allergy (Unknown, Verified 04/29/24 14:41) SNEEZING AND INCREASE IN ASTHMA SYMPTOMS dog dander [DOGS] Allergy (Unknown, Verified 04/29/24 14:41) SNEEZING AND INCREASE IN ASTHMA SYMPTOMS haloperidol [From Haldol] Adverse Reaction (Severe, Verified 04/29/24 14:41) muscle spasm trazodone Adverse Reaction (Severe, Verified 04/29/24 14:41) painful erection SEASONAL ALLERGIES Allergy (Unknown, Uncoded 04/29/24 14:41) SNEEZING AND INCREASE IN ASTHMA SYMPTOMS Medication List - Last Reconciled 04/29/24 by Aron Trujillo PA-C albuterol sulfate 90 mcg/actuation (Ventolin HFA) 1 inh inhalation QID 30 days buprenorphine-naloxone 8-2 mg 3 tabs sublingual DAILY clobetasol 0.05% 1 appl topical DAILY 30 days clonidine HCl 0.1 mg PO TID cyclobenzaprine 5 mg PO TID PRN hydroxyzine pamoate 50 mg PO TID loratadine 10 mg PO DAILY melatonin 5 mg PO BEDTIME mirtazapine 45 mg PO BEDTIME nicotine 1 patch topical DAILY nicotine (polacrilex) 4 mg PO Q1H 20 days quetiapine (Seroquel) 100 mg PO BEDTIME sertraline 25 mg PO DAILY Tobacco use date assessed: 04/29/24 Dental Screening Dental Screen Date: 04/29/24 Did you have a dental visit in the last 12 months?: No Did you have a dental problem in the last 6 months where you did not have access to dental care?: No Was dental information given to patient?: Patient has dentist HPI Med review HPI Details Patient is a 28-year-old male here today a follow-up visit. Patient has a past medical history significant for tobacco abuse, history of IV heroin use, chronic hepatitis-C, asthma, anxiety. .. Anxiety: His anxiety has proven resistant to several pharmacologic interventions, including SSRIs and anxiolytics, and is particularly problematic in maintaining sobriety periods. 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 Attempts to stabilize anxiety with non-benzodiazepine alternatives like propranolol, hydroxyzine, and others have been unsuccessful, contributing to cyclicials of self-medication and relapse. .. Asthma: reports his asthma has been well controlled with only p.r.n. use of his albuterol inhaler. unfortunately does continue to smoke .. IV opiate use (in early remission)- continues to struggle with opiate dependency often relapsing.. now living in sober living, has been sober over the past few months.. Now on Suboxone. --> Munoz family history considerations include his late mother's struggle with substance dependency, transitioning into severe complications, namely endocarditis, which had a profound emotional and psychological impact on the patient. This plays into his existing psychosocial difficulties, affecting overall treatment response and engagement with healthcare services. --> he is also concerned about his low testosterone, he reports symptoms of increased depression, low libido, difficulty growing facial hair. He reports he got tested and was low normal. He does understand this is likely due to years of opiate use at a young age. He is interested in seeing a neurologist for hypogonadism workup and possibly supplemental testosterone .. Smoker: Has reduced his cigarette smoking. Has tried Chantix in the past though was not helpful.. He does have nicotine patches available to him through his methadone clinic He would like to continue nicotine gum [facility] Surgical History No pertinent past surgical history Family History Father Leukemia Mother Chronic mental illness Addiction Maternal Grandmother Chronic mental illness Maternal Grandfather No problems noted. Sister Anxiety Depression Addiction to drug Social History Housing: Other Housing Other:: half way house Alcohol intake: never Patient Tobacco Use Status: Former Tobacco user Tobacco use type: Cigarette Cigarette Packs Per Day: 1 e-Cigarette/Vaping Use: Never Used Second Hand Smoke Exposure: Yes Substance Use Type: Heroin service: No Current occupational status: unemployed Current occupational exposures/hazards: No Cognitive needs: No Hearing needs: No Vision needs: No Questionnaire PHQ-9 Over the last 2 weeks, how often have you been bothered by any of the following problems? 1. Little interest or pleasure in doing things: not at all 2. Feeling down, depressed, or hopeless: not at all 3. Trouble falling or staying asleep, or sleeping too much: not at all 4. Feeling tired or having little energy: not at all 5. Poor appetite or overeating: not at all 6. Feeling bad about yourself - or that you are a failure or have let yourself or your family down: not at all 7. Trouble concentrating on things, such as reading the newspaper or watching television: not at all 8. Moving or speaking so slowly that other people could have noticed. Or the opposite - being so fidgety or restless that you have been moving around a lot more than usual: not at all 9. Thoughts that you would be better off or of hurting yourself in some way: not at all Total score: 0 Depression Screening Interpretation: Negative Depression Screening Done: Yes 55551 - PHQ-9 Billing: Yes Source: Developed by Drs. Daniel Cleary, Michelle Dye, Torsten Espinoza and colleagues, with an educational nadine from [employer]. Thrive Questionnaire Date Thrive assessed: 04/29/24 I am a: Patient What is your living situation today?: I have a steady place to live Within the past 12 months, did the food you bought not last and you didn't have the money to get more?: Never true Within the past 12 months, did you worry whether your food would run out before you got money to buy more?: Never true Do you have trouble paying for medicines?: No Do you have trouble getting transportation to medical appointments?: No Do you have trouble paying your heating and electricity bill?: No Do you have trouble taking care of your child, family member or friend?: No Do you have trouble with day-to-day activities such as bathing, preparing meals, shopping, managing finances, etc.?: No Are you currently unemployed and looking for a job?: No Are you interested in more education?: No Please select the resources that you would like help with: None Currently or been in a relationship where the following occur: No concerns reported THRIVE Score: 0 AUDIT C Alcohol Use Questionnaire (AUDIT-C) 1. How often do you have a drink containing alcohol?: Never 3. How often do you have six or more drinks on one occasion?: Never Total Score: 0 Score Reviewed/Action Taken: Yes BISHOP-7 AMB Questionnaire BISHOP-7 Date BISHOP - 7 assessed: 04/29/24 Feeling nervous, anxious, or on edge: 0 = Not at all Not being able to stop or control worryin = Not at all Worrying too much about different things: 0 = Not at all Trouble relaxin = Not at all Being so restless that it is hard to sit still: 0 = Not at all Becoming easily annoyed or irritable: 0 = Not at all Feeling afraid as if something awful might happen: 0 = Not at all Total BISHOP-7 score (0-4 normal; 5-9 mild; 10-14 moderate; 15-21 severe): 0 Source: Developed by Drs. Daniel Cleary, Michelle Dye, Torsten Espinoza and colleagues, with an educational nadine from [employer]. BISHOP-7 Assessment Billing BISHOP-7 Assessment Tool: BISHOP-7 Assessment 42630 Review of Systems Const Denies headache(s) Eyes Denies loss of vision ENT Denies vertigo, Denies dizziness, Denies headache(s) and Denies sore throat Card Denies chest pain, Denies leg edema and Denies lightheadedness Resp Denies cough, Denies hemoptysis and Denies wheezing GI Denies abdominal pain, Denies melena, Denies constipation, Denies diarrhea and Denies vomiting Denies dysuria, Denies urinary frequency and Denies urinary urgency Musc Denies arthralgias, Denies joint swelling, Denies numbness and Denies tingling Neuro Denies Abnormal speech present, Denies behavioral changes, Denies vertigo, Denies dizziness, Denies headache(s), Denies loss of vision, Denies memory loss, Denies numbness and Denies tingling Psych Denies anxiety, Denies behavioral changes, Denies depression, Denies memory loss and Denies panic attacks Lester/Lymph Denies easy bleeding and Denies easy bruising Aller/Immun Denies wheezing Physical exam (Primary Care) Vital Signs: Last Vital Signs Pulse 95 04/29/24 14:08 BP 114/72 04/29/24 14:08 Pulse Ox 95 04/29/24 14:08 Oxygen Delivery Method Room Air 04/29/24 14:08 BMI result Body Mass Index 24.9 Tobacco/Smoking Status: Tobacco use Status Tobacco use date assessed 04/29/24 04/29/24 14:18 Patient Tobacco Use Status Former Tobacco user 04/29/24 14:18 Tobacco use type Cigarette 04/29/24 14:18 e-Cigarette/Vaping Use Never Used 04/29/24 14:18 PHQ-9: PHQ-9 Score PHQ-9: Total score 0 04/29/24 14:43 Depression Screening Interpretation: Negative Thrive Assessment: Date of Thrive Assessment Date Thrive assessed 04/29/24 04/29/24 14:18 Currently or been in a relationship where the following occur: No concerns reported Const General: healthy appearing, no acute distress, alert and awake Nutritional Appearance: well nourished Orientation/consciousness: oriented to person, oriented to place and oriented to time HENMT Ears: TM's normal bilaterally General nose exam: Normal nasal mucous membranes and turbinates present Eyes Conjunctivae: conjunctivae normal Sclerae: sclerae normal Pupils: Equal, round and reactive pupils present Neck Neck: Yes no lymphadenopathy and Yes no JVD Thyroid: Thyroid normal Carotids: no bruits Resp Effort & Inspection: normal respiratory effort and not tachypneic Auscultation: no crackles, no rales, no rhonchi and no wheezes Cardio Rate: regular rate Rhythm: regular rhythm Heart sounds: no murmurs and normal S1 and S2 GI Palpation (GI): Soft to palpation, nontender, no hepatomegaly and no splenomegaly Auscultation: normal bowel sounds Skin General skin exam: no rashes or lesions noted and dry skin Neuro General: oriented to person, oriented to place and oriented to time Cranial nerves: Yes Equal, round and reactive pupils present Speech: No Abnormal speech present Gait exam (Neuro): Normal gait present Motor exam (neuro): no tremor noted Extrem Right upper extremity: full ROM Left upper extremity: full ROM Right lower extremity: full ROM; no edema Left lower extremity: full ROM; no edema Psych Mental Status: mental status grossly normal Speech and movement: Normal speech and movement present Affect: normal affect Attitude: cooperative Thought process: Normal thought process present Coding Level of Care Code Est Pt Level 4 (53667) Diagnoses History of opioid abuse F11.11 BISHOP (generalized anxiety disorder) F41.1 Moderate episode of recurrent major depressive disorder F33.1 Active/Remission status: currently active Major depression episode severity: moderate Major depression recurrence: recurrent Screening for diabetes mellitus (DM) Z13.1 Mild persistent asthma without complication J45.30 Asthma severity: mild Asthma persistence: persistent Asthma complication type: uncomplicated Current smoker F17.200 Additional Codes BISHOP-7 Assessment Billing - BISHOP-7 Assessment Tool: BISHOP-7 Assessment 99262 ([id number]) PHQ-9 - 56671 - PHQ-9 Billing: Yes ([id number]) Assessment & Plan Assessment & Plan (1) History of opioid abuse: Code(s): F11.11 - Opioid abuse, in remission Category: Medical Plan: Plan includes continued use of Suboxone, integration into relapse prevention programs, and inclusion of psychiatric supports. (2) BISHOP (generalized anxiety disorder): Code(s): F41.1 - Generalized anxiety disorder Category: Medical Plan: Plan includes ongoing pharmacologic trials, exploring non-addictive alternatives while considering psychiatric inputs for re-evaluating benzodiazepine therapy sensibly. (3) MDD (major depressive disorder): Code(s): F32.9 - Major depressive disorder, single episode, unspecified Category: Medical Qualifiers: Active/Remission status: currently active Major depression episode severity: moderate Major depression recurrence: recurrent Qualified Code(s): F33.1 - Major depressive disorder, recurrent, moderate Plan: Patient's PHQ-9 score 0, does suffer with some depression though mostly use anxiety. He is seeing a mental health therapist and is on a waiting list to see a psychiatrist. He is hoping to be establish with an familiar psychiatrist to be restarted on his previous benzodiazepines for his anxiety (4) Screening for diabetes mellitus (DM): Code(s): Z13.1 - Encounter for screening for diabetes mellitus Category: Medical Plan: As per HPI (5) Asthma: Code(s): J45.909 - Unspecified asthma, uncomplicated Category: Medical Qualifiers: Asthma severity: mild Asthma persistence: persistent Asthma complication type: uncomplicated Qualified Code(s): J45.30 - Mild persistent asthma, uncomplicated Plan: Plan includes continuation of albuterol inhaler with monitoring of symptoms as applicable. (6) Current smoker: Code(s): F17.200 - Nicotine dependence, unspecified, uncomplicated Category: Social Hx Plan: Patient to continue nicotine replacement therapy, with observation of compliance to residential program protocols. Orders: Orders Comprehensive [place]. Panel Fast 04/29/24 Z13.1 - Encounter for screening for diabetes mellitus Complete Blood Count no Diff 04/29/24 Z13.1 - Encounter for screening for diabetes mellitus Hepatitis C Viral Load 04/29/24 B18.2 - Chronic viral hepatitis C Testosterone, Free/Total 04/29/24 E29.1 - Testicular hypofunction Patient Instructions: Goal: Control anxiety and stay sober from illicit drug use Barriers: Mental health
== END 2024-04-29 15:11 | disposition home or self-care (01) ==
PROVIDERS: PCP Physician Assistant; Visit Provider Physician Assistant
DX: F11.11 Opioid abuse, in remission (principal); F41.1 Generalized anxiety disorder; F33.1 Major depressive disorder, recurrent, moderate; Z13.1 Encounter for screening for diabetes mellitus; J45.30 Mild persistent asthma, uncomplicated; F17.200 Nicotine dependence, unspecified, uncomplicated

== ENCOUNTER → 2024-04-29 13:52 | Outpatient (BNVA) | payer OTHER, SELFPAY | PROVIDERS: PCP Physician Assistant; Visit Provider Physician Assistant | DX: F11.11 Opioid abuse, in remission (principal); F41.1 Generalized anxiety disorder; F33.1 Major depressive disorder, recurrent, moderate; J45.30 Mild persistent asthma, uncomplicated; F17.200 Nicotine dependence, unspecified, uncomplicated; Z71.6 Tobacco abuse counseling | CPT/HCPCS: 96127; 99212 ==

== ENCOUNTER 2024-05-27 09:20 | Outpatient (REF) | payer OTHER, SELFPAY ==
[2024-05-27 10:46] LABS: Hematocrit 42.2 % (42.0-52.0); Hemoglobin 14.3 g/dl (14.0-18.0); Mean Corpuscular HGB Conc 33.9 g/dl (31.0-36.0); Mean Corpuscular Hemoglobin 29.8 pg (27.0-33.0); Mean Corpuscular Volume 87.9 fL (80.0-98.0); Mean Platelet Volume 9.8 fL (9.4-12.4); Platelet Count 228 X10*3/uL (160-400); Red Cell Distribution Width 12.6 % (11.0-16.0)
[2024-05-27 12:05] LABS: Alanine Aminotransferase 20 U/L (0-40); Albumin Level 4.4 g/dL (3.5-5.0); Alkaline Phosphatase 103 U/L (39-117); Anion Gap 9 (12-20); Aspartate Amino Transferase 29 U/L (5-37); Bilirubin Total 0.6 mg/dL (0.0-1.0); Blood Urea Nitrogen 16 mg/dL (9-16); Calcium 9.7 mg/dL (8.4-10.2); Carbon Dioxide 31 mmol/L (22-29); Chloride 105 mmol/L (96-108); Estimated Glomerular Filt Rate > 60; Glucose Fasting 93 mg/dL (60-99); Potassium 4.3 mmol/L (3.3-5.1); Sodium 141 mmol/L (135-145); Total Protein 7.5 g/dL (6.5-8.0)
[2024-05-28 16:38] LABS: HCV Log PCR <1.18 NOT DETECTED Log IU/mL (NOT DETECTED); HepC Viral Load <15 NOT DETECTED IU/mL (NOT DETECTED)
[2024-06-03 08:33] LABS: Testosterone, Free 42 pg/mL (35.0-155.0); Testosterone, Total 283 ng/dL (250-1100)
== END 2024-05-27 09:21 | disposition home or self-care (01) ==
LOC: HO.LAB 09:20
PROVIDERS: PCP Physician Assistant; Visit Provider Physician Assistant
DX: Z13.1 Encounter for screening for diabetes mellitus (principal); B18.2 Chronic viral hepatitis C; E29.1 Testicular hypofunction
CPT/HCPCS: 36415; 80053; 84402; 84403; 85027; 87522

== ENCOUNTER 2024-10-27 14:02 | Outpatient (AMB) | payer OTHER, SELFPAY ==
--- NOTE | 2024-10-27 14:06 | A.OFFPC_ITS ---
Vital Signs 10/27/24 14:07 Height 5 ft 7 in Weight 198 lb 6 oz BMI 31.1 BP 122/68 Blood Pressure Location Lt brachial Position Sitting Pulse 81 Pulse Source Pulse Oximeter Temp 97.3 F Temp Source Temporal Artery Scan Pulse Oximetry (%) 97 Oxygen Delivery Method Room Air Intake Visit Reasons: pe Intake Note: Patient is here today for a physical. 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: No Lead Installer: Not Required per policy Accompanied by: Self / Same As Patient Allergies cat dander (CATS) Allergy (Unknown, Verified 10/27/24 14:20) SNEEZING AND INCREASE IN ASTHMA SYMPTOMS dog dander (DOGS) Allergy (Unknown, Verified 10/27/24 14:20) SNEEZING AND INCREASE IN ASTHMA SYMPTOMS haloperidol (From Haldol) Adverse Reaction (Severe, Verified 10/27/24 14:20) muscle spasm trazodone Adverse Reaction (Severe, Verified 10/27/24 14:20) painful erection SEASONAL ALLERGIES Allergy (Unknown, Uncoded 10/27/24 14:20) SNEEZING AND INCREASE IN ASTHMA SYMPTOMS Medication List - Last Reconciled 10/27/24 by Aron Trujillo PA-C albuterol sulfate 90 mcg/actuation (Ventolin HFA) 1 inh inhalation QID 30 days buprenorphine-naloxone 8-2 mg 3 tabs sublingual DAILY clobetasol 0.05% 1 appl topical DAILY 30 days diphenhydramine HCl (Banophen) 50 mg PO BEDTIME loratadine 10 mg PO DAILY melatonin 5 mg PO BEDTIME mirtazapine 45 mg PO BEDTIME propranolol 20 mg PO TID quetiapine (Seroquel) 100 mg PO BEDTIME Tobacco use date assessed: 10/27/24 Dental Screening Dental Screen Date: 04/29/24 HPI pe HPI Details Patient is a 28-year-old male here today an annual physical. Patient has a past medical history significant for tobacco abuse, history of IV heroin use, chronic hepatitis-C, asthma, anxiety. .. Anxiety: His anxiety has proven resistant to several pharmacologic interventions, including SSRIs and anxiolytics, and is particularly problematic in maintaining sobriety periods. 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 Attempts to stabilize anxiety with non- benzodiazepine alternatives like propranolol, hydroxyzine, and others have been unsuccessful, contributing to cyclicials of self-medication and relapse. He is currently looking for a new psychiatrist as he does not agree upon his past med providers on his anxiety control .. Asthma: reports his asthma has been well controlled with only p.r.n. use of his albuterol inhaler. He has quit smoking .. 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 Continues on Suboxone He [place] [facility]. --> Munoz family history considerations include his late mother's struggle with substance dependency, transitioning into severe complications, namely endocarditis, which had a profound emotional and psychological impact on the patient. This plays into his existing psychosocial difficulties, affecting overall treatment response and engagement with healthcare services. .. --> hypogonadism: Most recent testoster one low end of normal. He does understand his testosterone likely low due chronic opiate use. He reports symptoms of increased depression, low libido, difficulty growing facial hair. He is interested in seeing a urologist for hypogonadism workup and possibly supplemental testosterone .. Former Smoker: Has reduced his cigarette smoking. He has quit smoking over the last 5-6 months Vaccines: Up-to-date with COVID vaccine and tetanus vaccine, considering flu vaccine this flu season [facility] Medical History Active intravenous drug use Surgical History No pertinent past surgical history Family History Father Leukemia Mother Chronic mental illness Addiction Maternal Grandmother Chronic mental illness Maternal Grandfather No problems noted. Sister Anxiety Depression Addiction to drug Social History (Updated 10/27/24 @ 14:23 by Aron Trujillo PA-C) Housing: Other Housing Other:: half way house Alcohol intake: never Patient Tobacco Use Status: Former Tobacco user Tobacco use type: Cigarette Cigarette Packs Per Day: 1 e-Cigarette/Vaping Use: Never Used Second Hand Smoke Exposure: Yes Substance Use Type: Heroin service: No Current occupational status: unemployed Current occupational exposures/hazards: No Cognitive needs: No Hearing needs: No Vision needs: No Questionnaire PHQ-9 Over the last 2 weeks, how often have you been bothered by any of the following problems? 1. Little interest or pleasure in doing things: several days 2. Feeling down, depressed, or hopeless: several days 3. Trouble falling or staying asleep, or sleeping too much: nearly every day 4. Feeling tired or having little energy: several days 5. Poor appetite or overeating: not at all 6. Feeling bad about yourself - or that you are a failure or have let yourself or your family down: several days 7. Trouble concentrating on things, such as reading the newspaper or watching television: not at all 8. Moving or speaking so slowly that other people could have noticed. Or the opposite - being so fidgety or restless that you have been moving around a lot more than usual: not at all 9. Thoughts that you would be better off or of hurting yourself in some way: not at all Total score: 7 Depression Screening Interpretation: Positive Depression Screening Follow-up: Existing condition and In treatment Depression Screening Done: Yes 54726 - PHQ-9 Billing: Yes Source: Developed by Drs. Daniel Cleary, Michelle Dye, Torsten Espinoza and colleagues, with an educational nadine from [employer] Thrive Questionnaire Date Thrive assessed: 10/20/24 I am a: Patient What is your living situation today?: I choose not to answer this question Within the past 12 months, did the food you bought not last and you didn't have the money to get more?: Never true Within the past 12 months, did you worry whether your food would run out before you got money to buy more?: Never true Do you have trouble paying for medicines?: I choose not to answer this question Do you have trouble getting transportation to medical appointments?: I choose not to answer this question Do you have trouble paying your heating and electricity bill?: I choose not to answer this question Do you have trouble taking care of your child, family member or friend?: I choose not to answer this question Do you have trouble with day-to-day activities such as bathing, preparing meals, shopping, managing finances, etc.?: I choose not to answer this question Are you currently unemployed and looking for a job?: I choose not to answer this question Are you interested in more education?: I choose not to answer this question Please select the resources that you would like help with: Transportation Currently or been in a relationship where the following occur: No concerns reported THRIVE Score: 0 AUDIT C Alcohol Use Questionnaire (AUDIT-C) 1. How often do you have a drink containing alcohol?: Never 3. How often do you have six or more drinks on one occasion?: Never Total Score: 0 BISHOP-7 AMB Questionnaire BISHOP-7 Date BISHOP - 7 assessed: 10/27/24 Feeling nervous, anxious, or on edge: 3 = Nearly every day Not being able to stop or control worryin = Nearly every day Worrying too much about different things: 1 = Several days Trouble relaxin = Several days Being so restless that it is hard to sit still: 0 = Not at all Becoming easily annoyed or irritable: 3 = Nearly every day Feeling afraid as if something awful might happen: 1 = Several days Total BISHOP-7 score (0-4 normal; 5-9 mild; 10-14 moderate; 15-21 severe): 12 Source: Developed by Drs. Daniel Cleary, Michelle Dye, Torsten Espinoza and colleagues, with an educational nadine from [employer] BISHOP-7 Assessment Billing BISHOP-7 Assessment Tool: BISHOP-7 Assessment 15869 Review of Systems Const Denies body aches, Denies chills, Denies excessive sweating, Denies fatigue, Denies fever(s) and Denies headache(s) Eyes Denies blurry vision ENT Denies dysphagia, Denies vertigo, Denies dizziness, Denies headache(s), Denies hearing loss and Denies tinnitus Card Denies chest pain, Denies chest pain with activity, Denies syncope, Denies irregular heart rhythm and Denies dyspnea Resp Denies chest congestion, Denies cough, Denies hemoptysis, Denies dyspnea and Denies wheezing GI Denies abdominal pain, Denies melena, Denies hematochezia, Denies coffee ground emesis, Denies dysphagia, Denies diarrhea, Denies nausea and Denies vomiting Denies difficulty urinating, Denies dysuria, Denies urinary frequency, Denies urinary hesitancy and Denies urinary urgency Musc Denies arthralgias, Denies limited range of motion, Denies muscle cramps and Denies muscle weakness Skin/Breast Denies rash and Denies skin ulcer Neuro Denies Abnormal speech present, Denies confusion, Denies vertigo, Denies dizziness, Denies syncope, Denies headache(s), Denies memory loss and Denies seizure-like activity Psych Denies anxiety, Denies confusion, Denies depression, Denies memory loss, Denies panic attacks and Denies paranoia Endo Denies excessive sweating, Denies fatigue, Denies flushing, Denies polydipsia and Denies polyuria Aller/Immun Denies wheezing Physical exam (Primary Care) Vital Signs: Last Vital Signs Temp 97.3 F 10/27/24 14:07 Pulse 81 10/27/24 14:07 BP 122/68 10/27/24 14:07 Pulse Ox 97 10/27/24 14:07 Oxygen Delivery Method Room Air 10/27/24 14:07 BMI result Body Mass Index 31.1 BMI Assessment/Plan discussion: High BMI High, discussed plan: lifestyle, weight reduction, dietary and physical activity Tobacco/Smoking Status: Tobacco use Status Tobacco use date assessed 10/27/24 10/27/24 14:19 Patient Tobacco Use Status Former Tobacco user 10/27/24 14:19 Tobacco use type Cigarette 10/27/24 14:19 e-Cigarette/Vaping Use Never Used 10/27/24 14:19 PHQ-9: PHQ-9 Score PHQ-9: Total score 7 10/27/24 14:19 Depression Screening Interpretation: Positive Depression Screening Follow-up: Existing condition and In treatment Thrive Assessment: Date of Thrive Assessment Date Thrive assessed 10/20/24 10/27/24 14:19 Currently or been in a relationship where the following occur: No concerns reported Const General: cooperative, comfortable, no acute distress, alert and awake; No confusion Orientation/consciousness: oriented to person, oriented to place, patient oriented x3 and No confusion HENMT Head: Yes normocephalic Ears: external ears normal and TM's normal bilaterally Face and sinus: No sinus tenderness Mouth: Normal oral and palatal mucosa present and tongue normal Teeth and gingiva: dentition normal and gingiva normal Throat: Yes posterior oropharynx normal, Yes tonsils normal and Yes uvula midline Eyes Conjunctivae: conjunctivae normal Sclerae: sclerae normal Pupils: Equal, round and reactive pupils present EOM: EOMs intact bilaterally Direct Ophthalmoscopy: No no photophobia Neck Neck: Yes no lymphadenopathy, No tender and Yes no JVD Thyroid: Thyroid normal Carotids: no bruits Chest Chest palpation & inspection: no tenderness Resp Effort & Inspection: normal respiratory effort, no audible wheezes, not labored and no stridor Auscultation: no crackles, no rales, no rhonchi and no wheezes Cardio Jugular venous distension: no JVD Rate: regular rate, not bradycardic and not tachycardic Rhythm: regular rhythm Bruits: no carotid bruits Peripheral pulses: Peripheral pulses 2+ throughout GI Inspection: Yes normal to inspection, No abdominal wall ecchymosis and No visible herniation Palpation (GI): Soft to palpation, nontender, no guarding, not rigid and No hepatosplenomegaly present Auscultation: normoactive bowel sounds General: Yes no CVA tenderness Back/Spine/Pelvis Back: no CVA tenderness and No back tenderness Cervical Spine: cervical ROM normal Thoracic/Lumbar Spine: thoracic and lumbar spine normal to inspection, straight leg raise negative bilaterally, No thoraco-lumbar ROM limited and No lumbar spinal tenderness Skin Lesions: no lesions Rashes: no rashes Wounds: no wounds Neuro General: oriented to person, oriented to place, patient oriented x3, CN's II-XI intact bilaterally and No confusion Cranial nerves: Yes Equal, round and reactive pupils present and Yes Normal accommodation reflex present Cognition (Neuro): normal cognition Speech: No Abnormal speech present Gait exam (Neuro): Normal gait present Motor exam (neuro): 5/5 motor strength present throughout Extrem Right upper extremity: full ROM; no cyanosis Left upper extremity: full ROM; no cyanosis Right lower extremity: no edema Left lower extremity: no edema Psych Appearance: grossly normal Mental Status: mental status grossly normal Affect: normal affect Attitude: cooperative Thought process: Normal thought process present Coding Level of Care Code Est Pt Level 4 (25705) Diagnoses History of opioid abuse F11.11 BISHOP (generalized anxiety disorder) F41.1 Moderate episode of recurrent major depressive disorder F33.1 Major depression recurrence: recurrent Active/Remission status: currently active Major depression episode severity: moderate Screening for diabetes mellitus (DM) Z13.1 Mild persistent asthma without complication J45.30 Asthma severity: mild Asthma persistence: persistent Asthma complication type: uncomplicated Class 1 obesity E66.811 Former smoker Z87.891 Hypogonadism in male E29.1 Additional Codes PHQ-9 - 74863 - PHQ-9 Billing: Yes ([id number]) BISHOP-7 Assessment Billing - BISHOP-7 Assessment Tool: BISHOP-7 Assessment 72995 ([id number]) Assessment & Plan Assessment & Plan (1) History of opioid abuse: Code(s): F11.11 - Opioid abuse, in remission Category: Medical Plan: Currently has six-month sobriety from illicit opiates . Continue living in sober living in [place]. Plan includes continued use of Suboxone, integration into relapse prevention programs, and inclusion of psychiatric supports. (2) BISHOP (generalized anxiety disorder): Code(s): F41.1 - Generalized anxiety disorder Category: Medical Plan: Plan includes ongoing pharmacologic trials, exploring non-addictive alternatives while considering psychiatric inputs for re-evaluating benzodiazepine therapy sensibly. (3) MDD (major depressive disorder): Code(s): F32.9 - Major depressive disorder, single episode, unspecified Category: Medical Qualifiers: Major depression recurrence: recurrent Active/Remission status: currently active Major depression episode severity: moderate Qualified Code(s): F33.1 - Major depressive disorder, recurrent, moderate Plan: Patient's PHQ-9 score elevated, depression has been existing condition for him. He is seeing a mental health therapist and is on a waiting list to see a psychiatrist. He is hoping to be establish with an familiar psychiatrist to be restarted on his previous benzodiazepines for his anxiety (4) Screening for diabetes mellitus (DM): Code(s): Z13.1 - Encounter for screening for diabetes mellitus Category: Medical Plan: As per HPI (5) Asthma: Code(s): J45.909 - Unspecified asthma, uncomplicated Category: Medical Qualifiers: Asthma severity: mild Asthma persistence: persistent Asthma complication type: uncomplicated Qualified Code(s): J45.30 - Mild persistent asthma, uncomplicated Plan: Plan includes continuation of albuterol inhaler with monitoring of symptoms as applicable. (6) Class 1 obesity: Code(s): E66.811 - Obesity, class 1 Category: Medical Plan: Patient has gained significant amount of weight since he has been sober and not smoking cigarettes. He does understand his BMI is over 30 will try to work on better eating habits to reduce his weight (7) Former smoker: Code(s): Z87.891 - Personal history of nicotine dependence Category: Social Hx Plan: Congratulated patient on him quitting smoking. Has not smoked in over 5 months. (8) Hypogonadism in male: Code(s): E29.1 - Testicular hypofunction Category: Medical Plan: The patient has expressed interest in testosterone replacement therapy due to low testosterone levels. A referral to a urologist has been made for further evaluation and management. Orders: Orders Comprehensive [place]. Panel Fast Today Z13.1 - Encounter for screening for diabetes mellitus Complete Blood Count no Diff Today Z13.1 - Encounter for screening for diabetes mellitus Referrals Urology Referral E29.1 - Testicular hypofunction Medications: Refilled clobetasol 0.05% 1 appl topical DAILY 60 grams 1RF 30 days L65.9 - Nonscarring hair loss, unspecified
[2024-10-27 14:07] VITALS: BP 122/68; PULSE 81; TEMP 36.3; O2SAT 97; BMI 31.1
== END 2024-10-27 14:43 | disposition home or self-care (01) ==
PROVIDERS: PCP Physician Assistant; Visit Provider Physician Assistant
DX: Z00.00 Encounter for general adult medical examination without abnormal findings (principal); F11.11 Opioid abuse, in remission; F33.1 Major depressive disorder, recurrent, moderate; J45.30 Mild persistent asthma, uncomplicated; Z68.31 Body mass index [BMI] 31.0-31.9, adult; E66.811 Obesity, class 1; F41.1 Generalized anxiety disorder; Z13.1 Encounter for screening for diabetes mellitus; Z87.891 Personal history of nicotine dependence; E29.1 Testicular hypofunction

== ENCOUNTER → 2024-10-27 14:02 | Outpatient (BNVA) | payer OTHER, SELFPAY | PROVIDERS: PCP Physician Assistant; Visit Provider Physician Assistant | DX: Z00.00 Encounter for general adult medical examination without abnormal findings (principal); J45.909 Unspecified asthma, uncomplicated; F41.9 Anxiety disorder, unspecified; E29.1 Testicular hypofunction; F11.11 Opioid abuse, in remission; F41.1 Generalized anxiety disorder; F33.1 Major depressive disorder, recurrent, moderate; J45.30 Mild persistent asthma, uncomplicated; E66.811 Obesity, class 1; Z68.31 Body mass index [BMI] 31.0-31.9, adult; Z87.891 Personal history of nicotine dependence | CPT/HCPCS: 96127; 99395 ==

== ENCOUNTER 2025-01-20 15:05 | Outpatient (AMB) | payer OTHER, SELFPAY ==
--- NOTE | 2025-01-20 15:13 | A.OFFVIS_ITS ---
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 He is a patient of Dr. Trujillo. 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 Had no showed prior urology appointment over a year ago Enlarged firm right testicle on exam consistent with potential neoplasm Baseline labs ordered Urgent ultrasound ordered He tells me he has had minimal facial hair going back 10 years during his opiate drug use. Only starting to develop some hair now. Normal erections. Hypogonadism Baseline labs - 05/26 T 280 Testicular Mass Scrotal ultrasound 05/25 Hypoechoic lesion with associated macrocalcification measuring 1.6 x 1.2 x 1.4 cm [facility] Medical History Active intravenous drug use Surgical History No pertinent past surgical history Family History Father Leukemia Mother Chronic mental illness Addiction Maternal Grandmother Chronic mental illness Maternal Grandfather No problems noted. Sister Anxiety Depression Addiction to drug Social History Housing: Other Housing Other:: half way house Alcohol intake: never Patient Tobacco Use Status: Former Tobacco user Tobacco use type: Cigarette Cigarette Packs Per Day: 1 e-Cigarette/Vaping Use: Never Used Second Hand Smoke Exposure: Yes Substance Use Type: Heroin service: No Current occupational status: unemployed Current occupational exposures/hazards: No Cognitive needs: No Hearing needs: No Vision needs: No Review of Systems Const Denies chills and Denies fever(s) Card Reports no additional complaints and Denies syncope Resp Denies cough GI Denies abdominal pain and Denies heartburn Reports as per HPI and Denies change in libido Neuro Denies syncope Psych Denies change in libido Endo Denies change in libido Physical Exam Const General: cooperative, healthy appearing, comfortable and no acute distress Orientation/consciousness: patient oriented x3 HEENT Face and sinus: Yes normal facial exam Mouth: moist mucous membranes Neck Neck: Yes normal visual inspection, Yes full ROM and Yes trachea midline Chest Chest palpation & inspection: normal inspection of the chest Resp Effort & Inspection: normal respiratory effort, able to speak in complete sentences and no respiratory distress GI Inspection: Yes normal to inspection Back/Spine/Pelvis Cervical Spine: normal cervical lordosis Thoracic/Lumbar Spine: thoracic and lumbar spine normal to inspection Skin General skin exam: no rashes or lesions noted Neuro General: patient oriented x3, gait normal, tone normal and moves all extremities Extrem General: Yes normal to inspection and Yes capillary refill normal Results AMB Urinalysis, Automated UA Leukoctes 0 Abdelrahman/uL Last Edit by ISABELLA Nino on 01/20/25 15:24 UA Nitrite Negative Last Edit by ISABELLA Nino on 01/20/25 15:24 UA Urobilinogen 0.2 mg/dL Last Edit by Barb Mckeon [facility] on 01/20/25 15:2 4 UA Protein 15 mg/dL Last Edit by ISABELLA Nino on 01/20/25 15:24 UA pH 6.0 Last Edit by ISABELLA Nino on 01/20/25 15:24 UA Blood 0 Johnny/uL Last Edit by ISABELLA Nino on 01/20/25 15:24 UA Specific [place] 1.030 Last Edit by ISABELLA Nino on 01/20/25 15: 24 UA Ketone Negative Last Edit by ISABELLA Nino on 01/20/25 15:24 UA Bilirubin 0 mg/dL Last Edit by ISABELLA Nino on 01/20/25 15:24 UA Glucose 0 mg/dL Last Edit by ISABELLA Nino on 01/20/25 15:24 Results Reviewed Results Reviewed: Laboratory Last Values Urine pH (Auto) 6.0 01/20/25 15:19 Specific [place] (Auto) 1.030 01/20/25 15:19 Urine Protein (Auto) 15 mg/dL 01/20/25 15:19 Glucose (UA)(Auto) 0 mg/dL 01/20/25 15:19 Urine Ketones (Auto) Negative 01/20/25 15:19 Urine Blood (Auto) 0 Johnny/uL 01/20/25 15:19 Urine Nitrite (Auto) Negative 01/20/25 15:19 Urine Bilirubin (Auto) 0 mg/dL 01/20/25 15:19 Urine Urobilinogen (Auto) 0.2 mg/dL 01/20/25 15:19 Leukocyte Esterase (Auto) 0 Abdelrahman/uL 01/20/25 15:19 Assessment & Plan Assessment & Plan (1) Testicular mass: Code(s): N50.89 - Other specified disorders of the male genital organs Category: Medical Plan Tumor evaluation Discussed radical orchiectomy Orders: Orders AMB Urinalysis Automated Today Z13.9 - Encounter for screening, unspecified Follicle Stimulating Hormone Today E29.1 - Testicular hypofunction Alpha Fetoprotein Today N50.89 - Other specified disorders of the male genital organs HCG Tumor Marker Today C62.90 - Malignant neoplasm of unspecified testis, unspecified whether descended or undescended, N50.89 - Other specified disorders of the male genital organs US scrotum Today N50.89 - Other specified disorders of the male genital organs Testosterone, Free/Total Today E29.1 - Testicular hypofunction Lutenizing Hormone Today E29.1 - Testicular hypofunction Estrad Free (Tot Ultra + Free) Today E29.1 - Testicular hypofunction Lactate Dehydrogenase Today C62.90 - Malignant neoplasm of unspecified testis, unspecified whether descended or undescended, N50.89 - Other specified disorders of the male genital organs Patient Instructions: This note is constructed using voice recognition software. While every effort has been made to ensure accuracy taper and floater errors may have been included. Imaging studies, laboratory and physical exam results were discussed and reviewed in detail. No major barriers to patient understanding were identified. An opportunity to ask questions regarding the treatment plan was provided. All questions were answered. The patient expressed understanding and agreement with the above treatment plan. The patient is aware they should contact our office by phone for worsening of their current condition or the appearance of new urologic symptoms. Compliance is encouraged with any medications and followup testing that is ordered. It is a privilege to participate in the urologic care of your patient. If you have any questions or concerns regarding treatment for the above conditions, or other urologic issues, please do not hesitate to contact me. The office telephone contact is [phone]. Sincerely, Dr Brenden Carnes MD, [facility] - Urology Compassionate Specialist Care for the Genitourinary System Coding Level of Care Code New Pt Level 4 (30390) Diagnoses Testicular mass N50.89
== END 2025-01-20 15:53 | disposition home or self-care (01) ==
LOC: HO.HUSH 15:06
PROVIDERS: PCP Physician Assistant; Visit Provider Urology
DX: N50.89 Other specified disorders of the male genital organs (principal); Z13.9 Encounter for screening, unspecified
CPT/HCPCS: 99204

== ENCOUNTER → 2025-01-20 15:05 | Outpatient (BNVA) | payer OTHER, SELFPAY | PROVIDERS: PCP Physician Assistant; Visit Provider Urology | DX: N50.89 Other specified disorders of the male genital organs (principal); Z13.9 Encounter for screening, unspecified | CPT/HCPCS: 81003; 99202 ==

== ENCOUNTER 2025-01-21 12:14 | Outpatient (REF) | payer OTHER, SELFPAY ==
[2025-01-22 03:48] LABS: Follicle Stimulating Hormone 5.3 mIU/mL (1.4-12.8)
[2025-02-02 15:34] LABS: Testosterone, Free 73.7 pg/mL (35.0-155.0)
== END 2025-01-21 12:15 | disposition home or self-care (01) ==
LOC: HO.LAB 12:14
PROVIDERS: PCP Physician Assistant; Visit Provider Urology
DX: C62.90 Malignant neoplasm of unspecified testis, unspecified whether descended or undescended (principal); E29.1 Testicular hypofunction; N50.89 Other specified disorders of the male genital organs
CPT/HCPCS: 36415; 82105; 82670; 82681; 83001; 83002; 83615; 84402; 84403; 84702

== ENCOUNTER 2025-01-22 15:34 | Outpatient (REF) | payer OTHER, SELFPAY ==
--- NOTE | ~2025-01-22 | US_ITS ---
CLINICAL HISTORY: N50.89 - Other specified disorders of the male genital organs --- Additional Notes or Special Instructions: Testicular mass right side US Scrotum with Doppler Comparison: [place]/SR - US SCROTUM - 05/06/23 14:25 EST Findings: Right testicle measures 4.9 x 2.5 x 2.8 cm. There is a heterogeneous ill-defined hypervascular region within the right testicle measuring 4.1 x 2.2 x 2.5 cm. Left testicle normal echotexture, 5.1 x 2.3 x 3.1 cm. Color Doppler and arterial/venous spectral tracings of both testicles demonstrate increased vascularity to the right testicle and epididymis, and slightly increased flow to the left testicle. Bilateral epididymal head cysts are present. No hydroceles or varicoceles. IMPRESSION: 1. Findings suggestive of right epididymo-orchitis, and possible mild left orchitis. 2. 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 This document has been electronically signed by: Sandra Barlow MD on 01/22/2025 18:41:30
--- OUTSIDE RECORDS SUMMARY | 2025-01-22 15:38 | XMS_ITS | Clinical Summary ---
Author Organization [facility] Address [address] [place] [address] Phone Care Team Providers Care Coat Agent Name Role Phone Physician, Pcp Unknown Primary Care Provider Darcie vailable Social History Tobacco Use Types Packs/Day Years Used Date Smoking Tobacco: Never Assessed Sex and Gender Information Value Date Recorded Sex Assigned at Not on file Legal Sex Male 5:29 PM EST Gender Identity Not on file Sexual Orientation Not on file Plan of Treatment Health Maintenance Due Date Last Done Comments Hepatitis B Vaccines (1 of 3 - 19+ 3-dose series) 12/31/2015 Pneumococcal Vaccine: Pediatrics (0 to 5 Years) and At-Risk Patients (6 to 49 Years) (1 of 2 - PCV) 12/31/2015 Social Influencers of Health Screening 02/03/2022 HPV Vaccines (1 - 3-dose SCDM series) 12/31/2023 Depression Screening 03/04/2024 COVID-19 Vaccine ( - 2024- season) 2024 04/11/2021, 07/29/2020 Influenza Vaccine (#1) 2024 , 11/27/2019, 04/21/2018, Additional history exists DTaP,Tdap,and Td Vaccines (2 - Td or Tdap) 04/16/2034 04/16/2024 RSV Immunization Adult Patients (1 - 1-dose 75+ series) 12/31/2071 HIV Screening Completed 06/02/2024 Hepatitis C Screening Completed 06/02/2024 HIB Vaccines Aged Out No longer eligi ble based on patient's age to complete this topic Hepatitis A Vaccines Aged Out No long er eligible based on patient's age to complete this topic IPV Vaccines Aged Out No longer eligi ble based on patient's age to complete this topic MMR Vaccines Aged Out No longer eligi ble based on patient's age to complete this topic Meningococcal ACWY Vaccine Aged Out N o longer eligible based on patient's age to complete this topic Meningococcal B Vaccine Aged Out No l onger eligible based on patient's age to complete this topic RSV Immunization Patients Under 20 months Aged Out No longer eligible based on patient's age to complete this topic Varicella Vaccines Aged Out No longer eligible based on patient's age to complete this topic Procedures Procedure Name Priority Date/Time Associated Diagnosis Comments HEPATITIS PANEL, ACUTE WITH REFLEX TO CONFIRMATION Routine 06/02/2024 9:29 AM EDT Cocaine dependence, in remission ([facility] V24, [facility] V28) HIV 1, 2 ANTIBODY, P24 ANTIGEN WITH REFLEX TO DIFFERENTIATION Routine 06/02/2024 9:29 AM EDT Cocaine dependence, in remission ([facility] V24, [facility] V28) from Last 3 Months or Most Recently Relevant to Health Maintenance Results * HIV 1,2 antibody, p24 antigen with reflex to differentiation (06/02/2024 9:29 AM EDT) [facility] HIV Combo AB/AG Negative Negative LAB CHEMISTRY METHOD 06/02/2024 3:21 PM EDT [facility] Blood Venous blood specimen / Unknown Venipuncture / Unknown 06/02/2024 9:29 AM EDT 06/02/2024 10:04 AM EDT Narrative [facility] - 06/02/2024 3:21 PM EDT This assay is a 4th generation assay allowing for earlier detection of HIV infection by detecting the presence of the HIV-1 p24 antigen as well as the traditional antibodies to HIV type 1 (including group O) and type 2. Use of a 4th generation assay is the current CDC recommendation for HIV screening. us Paola RODRIGUEZ LAB BLOOD ORDERABLES Final Resu lt [facility] [address] [place] [address], * (ABNORMAL) Hepatitis panel, acute with reflex to confirmation (06/02/2024 9:29 AM EDT) Hepatitis B Surface Ag Negative Negative LAB CHEMISTRY METHOD 06/02/2024 3:22 PM EDT [facility] Hepatitis A Antibody IgM Negative Negative LAB CHEMISTRY METHOD 06/02/2024 3:22 PM EDT [facility] Hep B Core IgM Negative Negative LAB CHEMISTRY METHOD 06/02/2024 3:22 PM EDT [facility] Hepatitis C Antibody Positive(A) Negative LAB CHEMISTRY METHOD 06/02/2024 3:22 PM EDT [facility] Comment:If confirmation of t his positive HCV Ab screening test is needed, please redraw and order HCV Viral Load. Note--> This test may not be added on due to different specimen requirements. Blood Venous blood specimen / Unknown Venipuncture / Unknown 06/02/2024 9:29 AM EDT 06/02/2024 10:04 AM EDT us Paola RODRIGUEZ LAB BLOOD ORDERABLES Final Resu lt [facility] [address] [place] [address], from Last 3 Months or Most Recently Relevant to Health Maintenance Insurance [facility] [employer] Care Teams Coat Agent Relationship Specialty Start Date End Date Physician, Pcp Unknown PCP - General 06/02/24
== END 2025-01-22 15:35 | disposition home or self-care (01) ==
LOC: HO.US 15:34
PROVIDERS: PCP Physician Assistant; Visit Provider Urology
DX: N50.89 Other specified disorders of the male genital organs (principal)
CPT/HCPCS: 76870

== ENCOUNTER → 2025-01-22 15:36 | Outpatient (BNV) | payer OTHER, SELFPAY | PROVIDERS: PCP Physician Assistant; Visit Provider Radiology Diagnostic Radiology | DX: N50.89 Other specified disorders of the male genital organs (principal) | CPT/HCPCS: 76870 ==

== ENCOUNTER 2025-02-10 11:30 | Outpatient (AMB) | payer OTHER, SELFPAY ==
--- NOTE | 2025-02-10 11:55 | A.OFFVIS_ITS ---
Intake Visit Reasons: Urgent US Follow Up(set) Intake Note: Reason for Visit:Urgent Scrotum US Results Urology Meds: None Blood Thinners: None Scrotum US: 01/22/2025 In Flight Technician Required: No Allergies cat dander (CATS) Allergy (Unknown, Verified 02/10/25 11:57) SNEEZING AND INCREASE IN ASTHMA SYMPTOMS dog dander (DOGS) Allergy (Unknown, Verified 02/10/25 11:57) SNEEZING AND INCREASE IN ASTHMA SYMPTOMS haloperidol (From Haldol) Adverse Reaction (Severe, Verified 02/10/25 11:57) muscle spasm trazodone Adverse Reaction (Severe, Verified 02/10/25 11:57) painful erection SEASONAL ALLERGIES Allergy (Unknown, Uncoded 02/10/25 11:57) SNEEZING AND INCREASE IN ASTHMA SYMPTOMS HPI Comments Details: Reuben is a pleasant male. He is a patient of Dr. Trujillo. 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 Enlarged firm right testicle on exam consistent with potential neoplasm Follow-up ultrasound shows - heterogeneous ill-defined hypervascular region within the right testicle measuring 4.1 x 2.2 x 2.5 cm Recommend radical right orchiectomy Hypogonadism Baseline labs - 05/26 T 280 Testicular Mass Scrotal ultrasound 05/25 Hypoechoic lesion with associated macrocalcification measuring 1.6 x 1.2 x 1.4 cm PFSH Medical History Active intravenous drug use Surgical History No pertinent past surgical history Family History Father Leukemia Mother Chronic mental illness Addiction Maternal Grandmother Chronic mental illness Maternal Grandfather No problems noted. Sister Anxiety Depression Addiction to drug Social History Housing: Other Housing Other:: half way house Alcohol intake: never Patient Tobacco Use Status: Former Tobacco user Tobacco use type: Cigarette Cigarette Packs Per Day: 1 e-Cigarette/Vaping Use: Never Used Second Hand Smoke Exposure: Yes Substance Use Type: Heroin service: No Current occupational status: unemployed Current occupational exposures/hazards: No Cognitive needs: No Hearing needs: No Vision needs: No Review of Systems Const Denies chills and Denies fever(s) Card Reports no additional complaints and Denies syncope Resp Denies cough GI Denies abdominal pain and Denies heartburn Reports as per HPI and Denies change in libido Neuro Denies syncope Psych Denies change in libido Endo Denies change in libido Physical Exam Const General: cooperative, healthy appearing, comfortable and no acute distress Orientation/consciousness: patient oriented x3 HEENT Face and sinus: Yes normal facial exam Mouth: moist mucous membranes Neck Neck: Yes normal visual inspection, Yes full ROM and Yes trachea midline Chest Chest palpation & inspection: normal inspection of the chest Resp Effort & Inspection: normal respiratory effort, able to speak in complete sentences and no respiratory distress GI Inspection: Yes normal to inspection Back/Spine/Pelvis Cervical Spine: normal cervical lordosis Thoracic/Lumbar Spine: thoracic and lumbar spine normal to inspection Skin General skin exam: no rashes or lesions noted Neuro General: patient oriented x3, gait normal, tone normal and moves all extremities Extrem General: Yes normal to inspection and Yes capillary refill normal Assessment & Plan Assessment & Plan (1) Testicular mass: Code(s): N50.89 - Other specified disorders of the male genital organs Category: Medical Plan Risks, benefits and alternatives to therapy were discussed. These include but are not limited to infection, bleeding, damage to local organs and tissues, need for further interventions. Anesthetic risks regarding cardiac arrhythmia, blood clots, and potential mortality were discussed. The patient understands the typical recovery time and the outpatient nature of the procedure. After consideration of these risks the patient gives full informed consent and they wish to move ahead with the procedure. - right radical orchiectomy Patient Instructions: This note is constructed using voice recognition software. While every effort has been made to ensure accuracy auto service representative errors may have been included. Imaging studies, laboratory and physical exam results were discussed and reviewed in detail. No major barriers to patient understanding were identified. An opportunity to ask questions regarding the treatment plan was provided. All questions were answered. The patient expressed understanding and agreement with the above treatment plan. The patient is aware they should contact our office by phone for worsening of their current condition or the appearance of new urologic symptoms. Compliance is encouraged with any medications and followup testing that is ordered. It is a privilege to participate in the urologic care of your patient. If you have any questions or concerns regarding treatment for the above conditions, or other urologic issues, please do not hesitate to contact me. The office telephone contact is [phone]. Sincerely, Dr Brenden Carnes MD, [facility] - Urology Compassionate Specialist Care for the Genitourinary System Coding Level of Care Code Est Pt Level 4 (65663) Diagnoses Testicular mass N50.89
== END 2025-02-10 12:14 | disposition home or self-care (01) ==
LOC: HO.HUSH 11:31
PROVIDERS: PCP Physician Assistant; Visit Provider Urology
DX: N50.89 Other specified disorders of the male genital organs (principal)
CPT/HCPCS: 99214

== ENCOUNTER → 2025-02-10 11:30 | Outpatient (BNVA) | payer OTHER, SELFPAY | PROVIDERS: PCP Physician Assistant; Visit Provider Urology | DX: N50.89 Other specified disorders of the male genital organs (principal) | CPT/HCPCS: 99212 ==